=== PATIENT | male | born 1940 | race Caucasian/White ===

== ENCOUNTER 2018-03-19 05:04 | Observation (INO) | payer MEDICARE ==
[2018-03-19 06:24] LABS: Bilirubin Small (Negative); Blood, Urine Moderate (Negative); Clarity CLEAR (Clear); Glucose, Urine (Dipstick) Negative (Negative); Leukocyte Negative (Negative); Nitrite Negative (Negative); Protein, Urine (Dipstick) 30 mg/dL (Neg-Trace); Specific Gravity, Urine 1.019 (1.002-1.036)
[2018-03-19 06:27] LABS: #Lymphocytes 2.2 thou/uL (1.20-3.40); #Neutrophils 15.2 thou/uL (1.40-6.50); %Basophils 0.1 % (0.0-1.0); %Eosinophils 0.2 % (0.0-10.0); %Lymphocytes 11.1 % (21.0-51.0); %Neutrophils 78.6 % (42.0-75.0); Hemoglobin 13.2 g/dL (14.0-18.0); Mean Corpuscular HGB CONC 33.3 g/dL (32.0-36.0); Mean Corpuscular Hemoglobin 31.7 pg (27.0-31.0); Mean Corpuscular Volume 95.2 fl (80.0-94.0); Mean Platelet Volume 8.3 fL (7.4-10.4); Platelet Count 155 thou/uL (130-400); RBC Distribution Width 11.8 % (11.5-14.5); Red Blood Cell (RBC) Count 4.14 mill/uL (4.70-6.10); White Blood Cell (WBC) Count 19.3 thou/uL (4.8-10.8)
[2018-03-19 06:27] LABS: Bacteria/HPF None Seen HPF (None Seen); Hyaline Casts/LPF 0-3 HYALINE CAST LPF (0-3 Hyaline); Squamous Epithelial None Seen HPF (0-3); WBC/HPF 0-3 HPF (0-3)
[2018-03-19 06:28] LABS: #Monocytes 1.9 thou/uL (0.11-0.59)
[2018-03-19 06:45] LABS: ALT (SGPT) 14 U/L (8-55); AST (SGOT) 14 U/L (5-34); Albumin 3.8 g/dL (3.4-4.8); Alkaline Phosphatase 70 U/L (40-150); Anion Gap 12 mmol/L (10-20); BUN (Urea Nitrogen) 14 mg/dL (8.4-25.7); Bilirubin, Total 1.7 mg/dL (0.2-1.2); Calc. Creatinine Clearance 0 mL/min (70-130); Calcium 9.1 mg/dL (7.8-10.44); Carbon Dioxide 25 mmol/L (23-31); Chloride 101 mmol/L (98-107); Estimated GFR-MDRD 89; Globulin 2.9 g/dL (2.4-3.5); Glucose 96 mg/dL (83-110); Lipase 14 U/L (8-78); Potassium 3.5 mmol/L (3.5-5.1); Protein, Total 6.7 g/dL (5.8-8.1); Sodium 134 mmol/L (136-145)
[2018-03-19] MEDS ORDERED: Piperacillin/Tazobactam 3.375 GM VIAL ONE (09:12)
--- NOTE | 2018-03-19 09:47 | CT ---
CT ABDOMEN AND PELVIS WITH ORAL AND IV CONTRAST: Date: 03/19/18 HISTORY: Abdominal pain, right upper quadrant pain, nausea. FINDINGS: There are dependent changes in the lung bases. A 5.0 mm peripheral nodule is seen in the lateral aspe ct of the left lung base. The liver, spleen, pancreas, adrenal glands, and kidneys appear normal. No calcified gallstones are s een. The small bowel loops are not abnormally dilated. There is a small amount of free fluid in the r ight lower quadrant. A 5.0 cm mass with fecal material and a small amount of fluid is seen in the right lower quadrant adj acent to the cecum, indicative of a contained appendiceal perforation. There are vascular calcifications without evidence of aneurysmal dilatation of the abdominal aorta. T here are degenerative changes in the spine. IMPRESSION: 1. Perforated appendicitis with abscess. 2. Evaluation of lung nodule with CT scan of chest is recommended. Discussed over the phone with ER physician. Dr. Marie, at 0810 hours. CODE CR. POS: [facility]
--- NOTE | 2018-03-19 10:22 | HP ---
DATE OF ADMISSION: 03/19/2018 HISTORY OF PRESENT ILLNESS: A 78-year-old man presented to the emergency department with a history of insidious onset periumbilical abdominal pain which started at midnight and now settled in the right lower quadrant where it has persisted. Pain is described as sharp without radiation. Preeti n is associated with some nausea, but no emesis. The patient denies any diarrhea, hematochezia or me matheus. He denies any unexplained weight loss. He reports, however, chronic recurrent mild and vague right lower quadrant abdominal pain over the last 2-3 years. He has been evaluated in the emergency department on multiple occasions for near syncopal episodes of undetermined etiology. Currently, the patient reports his pain at 7/10. He denies any fevers, though he reports some chills. PAST MEDICAL HISTORY: Pertinent for recurrent near syncope of undetermined etiology. Other past med ical history includes benign prostatic hypertrophy. PAST SURGICAL HISTORY: Pertinent for excision of skin cancer in 2007, diagnostic colonoscopy and marjorie gical repair of right forearm injury as a child. SOCIAL HISTORY: The patient is and lives at home with his . 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 He denies any cigarette smoking, ethanol or illicit drug abuse. FAMILY HISTORY: Noncontributory for this patient's age. CURRENT MEDICATION: Flomax 0.4 mg p.o. daily. ALLERGIES: Patient denies any known drug allergies. REVIEW OF SYSTEMS: Ten point review of systems essentially unremarkable except for as stated in past medical history and chief complaint. PHYSICAL EXAMINATION: GENERAL: This reveals 78-year-old normally developed man who is otherwise coherent and interactive a nd appears stated age. The patient is alert and oriented x3 and appears to be in moderate acute dist ress secondary to right lower quadrant abdominal pain. VITAL SIGNS: Today includes blood pressure 118/85, pulse is 68, respiratory rate is 18, and oxygen s aturation is 96% on room air. HEENT: Examination reveals normocephalic and atraumatic. Pupils are equal, round, reactive to light and accommodation. Extraocular muscles are intact bilaterally. He has no sclerae icterus present. Oral mucosa is pink and moist. No lesions are noted. NECK: Supple. No palpable lymphadenopathy or thyromegaly present. HEART: Reveals regular rate and rhythm. No murmurs or gallops auscultated. LUNGS: Clear to auscultation bilaterally. His breathing is regular and unlabored. ABDOMEN: Soft with right lower quadrant tenderness at McBurney's. He has a positive Rovsing sign. Liver and spleen are nonpalpable below costal margin. EXTREMITIES: Reveals 2+ radial and pedal pulses bilaterally. No ankle edema is present. NEUROLOGIC: Examination reveals no focal deficits present. IMAGING DATA: Pertinent radiographic studies include CT scan of the abdomen and pelvis which is pb rkable for 5 cm abscess adjacent to cecum with fecal material. The appendix is likely perforated. LABORATORY DATA: Today includes CBC with 19,300 white blood cells, hemoglobin 13.2, hematocrit is 39 .5, platelet count 155,000. Metabolic profile: Sodium 134, potassium is 3.5, chloride is 101, bicar bonate 25, BUN 14, creatinine 0.84, glucose 96. Total bilirubin 1.7, AST and ALT 14 and 14 respectiv carmen. Serum lipase is normal at 14. IMPRESSION: Acute appendicitis with perforation and contained periappendiceal abscess. PLAN: Laparoscopic appendectomy. Above findings and plan discussed with the patient who indicates u nderstanding of information given. I have answered his questions. The patient has granted consent f or this admission and surgical intervention. The history taken and informed consent was obtained in the presence of the patient's .
[2018-03-19 10:41] LABS: INR-International Normal Ratio 1.3; PTT 38.6 SEC (22.9-36.1); Prothrombin Time 16.9 SEC (12.0-14.7)
[2018-03-19] MEDS ORDERED: Piperacillin/Tazobactam 3.375 GM in Sodium Chloride 0.9% 100 ML IVPB SCH (12:00)
[2018-03-19] MEDS ORDERED: Lidocaine 1% PF 5 ML VIAL ONE (12:26)
[2018-03-19] MEDS ORDERED: Ondansetron HCl/PF 4 MG/2 ML Vial ONE ×2 (12:26→15:36)
[2018-03-19] MEDS ORDERED: ePHEDrine/0.9% NaCl/PF SYRINGE 50 mg/10 ml ONE (12:26)
[2018-03-19] MEDS ORDERED: Succinylcholine Chloride 20 MG/ML 10 ml SYRINGE FS ONE (12:26)
[2018-03-19] MEDS ORDERED: Glycopyrrolate 0.2 MG/ML 5 ML SYRINGE ONE (12:26)
[2018-03-19] MEDS ORDERED: Dexamethasone 20 MG/5 ML VIAL ONE (12:26)
[2018-03-19] MEDS ORDERED: PROPOFOL 200 MG/20 ML VIAL ONE (12:26)
[2018-03-19] MEDS ORDERED: Bupivacaine/Epinephrine 0.25% 30 ML VIAL ONE (14:40)
[2018-03-19] MEDS ORDERED: Fentanyl 250 MCG/5 ML VIAL ONE (14:42)
[2018-03-19] MEDS ORDERED: Midazolam HCl 2 mg/2 ml Vial ONE (14:42)
[2018-03-19] MEDS ORDERED: Iopamidol 370 76% 50 ML VIAL FS ONE (14:59)
[2018-03-19] MEDS ORDERED: ISOVUE-370 76%-LOCM 1 ML ONE (14:59)
[2018-03-19] MEDS ORDERED: HYDROmorphone 2 MG/ML VIAL SLOW IVP PRN (15:41)
[2018-03-19] MEDS ORDERED: Promethazine HCl 25 MG/ML VIAL SLOW IVP PRN (15:41)
[2018-03-19] MEDS ORDERED: Morphine Sulfate 2 MG/ML SYRINGE SLOW IVP PRN (15:41)
--- NOTE | 2018-03-19 16:25 | EKG ---
Test Reason : PREOP Blood Pressure : / mmHG Vent. Rate : 068 BPM Atrial Rate : 068 BPM P-R Int : 154 ms QRS Dur : 100 ms QT Int : 384 ms P-R-T Axes : 073 022 033 degrees QTc Int : 408 ms Normal sinus rhythm Normal ECG Confirmed by ATTILA BUCK ([id number]) on 03/19/2018 4:24:46 PM Referred By: DIONTE Confirmed By:ATTILA BUCK
[2018-03-19] MEDS ORDERED: hydrALAZINE 20 MG/ML VIAL SLOW IVP PRN (16:32)
[2018-03-19] MEDS ORDERED: Dextrose 5% in Water 1,000 ML IV PRN (16:32)
[2018-03-19] MEDS ORDERED: Ondansetron HCl/PF 4 MG/2 ML Vial IVP PRN (16:32)
[2018-03-19] MEDS ORDERED: Promethazine HCl 25 MG/ML VIAL IM PRN (16:32)
[2018-03-19] MEDS ORDERED: Dextrose 50% Abboject 50 ML SYRINGE SLOW IVP PRN (16:32)
[2018-03-19] MEDS ORDERED: Ibuprofen 600 MG TAB PO PRN (16:36)
[2018-03-19] MEDS ORDERED: Morphine 4 MG/ML VIAL SLOW IVP PRN (16:36)
[2018-03-19] MEDS ORDERED: traMADol HCl 50 MG TAB PO PRN ×2 (16:36)
[2018-03-19 18:42] VITALS: BMI 24.4
[2018-03-19] MEDS: Piperacillin/Tazobactam 3.375 GM in Sodium Chloride 0.9% 100 ML IVPB SCH ×2 (19:28→20:29)
[2018-03-19] MEDS: Acetaminophen 500 MG TAB PO SCH (19:29)
[2018-03-19] MEDS: Famotidine 20 MG TAB PO SCH (20:29)
[2018-03-19] MEDS ORDERED: Enoxaparin Sodium 40 MG/0.4 ML SYRINGE SC SCH (21:00)
[2018-03-19] MEDS ORDERED: Famotidine 40 MG/4 ML VIAL SLOW IVP SCH (21:00)
[2018-03-19] MEDS: Lactated Ringer's 1,000 ML IV SCH (21:31)
--- NOTE | 2018-03-19 22:01 | OP ---
DATE OF PROCEDURE: 03/19/2018 PREOPERATIVE DIAGNOSIS: Acute appendicitis. POSTOPERATIVE DIAGNOSIS: Acute appendicitis. PROCEDURE PERFORMED: Laparoscopic appendectomy. SURGEON: Darci Lunsford D.O. ANESTHESIA: General endotracheal. ESTIMATED BLOOD LOSS: 5 mL FLUIDS GIVEN: 650 mL crystalloids. SPONGE AND INSTRUMENT COUNT: Certified as correct x2. COMPLICATIONS: None apparent. INDICATIONS FOR PROCEDURE: This is a 78-year-old man presented with right lower quadrant abdominal p ain. Clinical and radiographic examination was consistent with acute appendicitis with possible perf oration given right lower quadrant fluid collection. FINDINGS: Findings are consistent with appendix in the usual anatomic location modestly inflamed. T here was some seropurulent fluid collection in the pelvis. I did not see any evidence of perforation . DESCRIPTION OF PROCEDURE: Informed consent obtained from the patient who was brought to the operatin g room and placed in supine position. Following general anesthesia, the abdomen was sterilely preppe d and draped in usual fashion. A Knowles catheter was inserted and placed bedside drain. The skin bel ow the umbilicus was then infiltrated with 0.25% Marcaine with epinephrine. A small curvilinear infr aumbilical incision was made using an 11 scalpel. Umbilical stalk was grasped with Susie's and elev ated. Veress needle was inserted through the incision and placed in the peritoneal cavity through wh ich the abdomen was insufflated with 3 liters of CO2 gas. Intraabdominal pressure noted at 1 mmHg. Following abdominal insufflation, Veress needle was removed and a 5-mm trocar was introduced using th e Visiport under laparoscopy. Laparoscopy confirmed proper placement of the port, no injuries to und erlying structures. Additional laparoscopy reveals the right lower quadrant partially encased by ome ntal adhesions. Under direct laparoscopy, a 5-mm suprapubic and a 12-mm left lower quadrant ports we re placed after the overlying skin were infiltrated with 0.25% Marcaine with epinephrine and appropri ate incisions made. The patient was placed in a Trendelenburg position, rotated to his left. I then introduced a Synthesioige grasper through the left lower quadrant port site using this to manipulate the small bowel off of the right lower quadrant, exposing a moderate fluid collection of seropurulent fl uid. This was evacuated with suction. Some of the specimen was passed off to microbiology. At this juncture, I used an Endo [place] forceps to grasp the appendix which was elevated. Fibrotic attachm ents to the right lateral gutter were taken down using a [place] dissector. I then used a [place] dissector to create a rent through the mesoappendix at the base. An Endo MONIKA with a blue load was us ed to divide the appendix at appendicocecal junction. Using a white load of the Endo-MONIKA, the mesoap pendix was divided at the base. The appendix was delivered of the abdominal cavity using an EndoCatc h. Operative site was inspected for good hemostasis. Finding no other pathology. Laparoscopy was t erminated and the fascia of the left lower quadrant ports was closed using 0 Vicryl suture and Endo c losure device under laparoscopy. The abdomen was desufflated. All ports and instruments removed and accounted for. Skin incision was closed using 4-0 Monocryl suture in subcuticular fashion. Dermabo nd was applied over the incision closure. The patient tolerated the operation without any apparent complication and was returned to recovery ro in a satisfactory condition.
[2018-03-20] MEDS: Acetaminophen 500 MG TAB PO SCH ×3 (00:24→12:45)
[2018-03-20] MEDS: Piperacillin/Tazobactam 3.375 GM in Sodium Chloride 0.9% 100 ML IVPB SCH ×2 (02:16→09:33)
[2018-03-20] MEDS: Lactated Ringer's 1,000 ML IV SCH ×2 (02:19→12:46)
[2018-03-20 08:07] VITALS: TEMP 97.6
[2018-03-20] MEDS: Famotidine 20 MG TAB PO SCH (09:33)
[2018-03-20 11:51] VITALS: BP 116/68
--- NOTE | 2018-03-20 13:05 | DIS ---
DATE OF ADMISSION: 03/19/2018 DATE OF DISCHARGE: 03/20/2018 ADMITTING PHYSICIAN: Darci Lunsford D.O. DISCHARGING PHYSICIAN: Darci Lunsford D.O. ADMITTING AND DISCHARGE DIAGNOSIS: Acute appendicitis. OPERATIONS PERFORMED: Laparoscopic appendectomy on 03/19/2018. Please see separate dictation for op erative report. HISTORY AND HOSPITAL COURSE: A 78-year-old man presented with abdominal pain. Clinical and radiogra phic examination was consistent with acute appendicitis. CT scan of the abdomen and pelvis also show ed what was suspected to be a right lower quadrant periappendiceal abscess. Operative findings were consistent with what appeared to be a sterile fluid collection evacuated and sent for microbiology an d was negative for any bacteria. The patient was admitted to a general surgical floor following an u neventful laparoscopic appendectomy. Postop day #1, he is ambulating with minimal difficulty. Pain is adequately controlled on oral analgesics. The patient is tolerating a diet and having normal esteban l and urinary function. He has remained hemodynamically stable and afebrile through this hospitaliza tion. The patient has been discharged home today with the following instructions: 1. He sees me in the Surgery Clinic in 10-14 days. 2. He is advised to ambulate daily to avoid complications of venous thromboembolism. 3. He may shower effective today, but avoid using bathtub or swimming. 4. He is to avoid weightlifting in excess of 20 pounds until he has been released by me. He may res ume all medications as prescribed by his primary care physician. Additionally, he is given a prescription for tramadol 50 mg #20 to be taken 1-2 p.o. q.6 hours p.r.n. pain. He may alternate this with Tylenol 1000 mg p.o. q.6 hours and ibuprofen 600 mg p.o. q.8 hours p.r.n. pain. Instructions were given to the patient in presence of his and his nurse at bedside. Patient ind icates understanding of information given. He has expressed gratitude for the care and nurturing dur ing this hospitalization and surgery.
[2018-03-26 10:23] LABS: Fungus Stain Final report (.)
== END 2018-03-20 13:17 | disposition home or self-care (01) ==
LOC: ERS 05:04 → SDC 11:03 → SURG B 18:09
PROVIDERS: ADMIT Surgery; ATTEND Surgery
PROC: 0DTJ4ZZ Resection of Appendix, Percutaneous Endoscopic Approach (ICD-10-PCS; principal; 2018-03-19)
DX: K35.80 Unspecified acute appendicitis (principal); Z98.890 Other specified postprocedural states
CPT/HCPCS: 44970; 74177; 80053; 83690; 85025; 85610; 85730; 86850; 86900; 86901; 87070; 87075; 87102; 87205; 87206; 88304; 93005; 96365; 96372; 97139; 99285; G0378; 36415; 81003; 81015; 93010; J1100; J1650; J2001; J2250; J2405; J2543; J2704; J3010; J7050

== ENCOUNTER 2019-02-05 07:39 | Outpatient (CLI) | payer MEDICARE ==
--- NOTE | 2019-02-05 09:58 | MRI ---
MRI CERVICAL SPINE: INDICATIONS: Cervical radiculopathy. Neck pain. TECHNIQUE: Multiplanar, multisequential imaging of the cervical spine obtained. FINDINGS: Moderate degenerative changes of the cervical spine noted. Loss of disk space at all levels. Degene rative disk and endplate changes. Hypertrophic spurring from the cervical vertebrae. There is a pos terior listhesis at C4-C5, measuring 3 to 4 mm. At C2-C3, mild posterior disk bulge and spondylosis flatten the thecal sac. There is right foraminal narrowing due to the facet and uncinate hypertrophy. At C3-C4, posterior disk bulge and spondylitic change impinge on and mildly flatten the anterior cord . Left foraminal narrowing secondary to facet and uncinate hypertrophy. At C4-C5, there is posterior listhesis, as stated above. Posterior disk bulge and spondylosis are al so present. These changes impinge on and flatten the cord. Bilateral foraminal encroachment from fa cet and uncinate hypertrophy. At C5-C6, slight posterior listhesis with spondylosis. These changes impinge and mildly flatten the cord. Bilateral foraminal narrowing, more severe on the right, due to hypertrophic change. At C6-C7, disk bulge and spondylosis are present; however, no cord impingement. The foramina appear patent. IMPRESSION: 1. Degenerative disk changes are prominent at C3-C4, C4-C5, and C5-C6. 2. Moderate cervical canal stenosis at these levels with cord impingement at all these levels and fo raminal encroachment at these levels, as described above. POS: [facility]
== END 2019-02-05 07:40 | disposition home or self-care (01) ==
LOC: BICMRI 07:39
PROVIDERS: ATTEND Family Medicine
DX: M50.11 Cervical disc disorder with radiculopathy, high cervical region (principal); M48.02 Spinal stenosis, cervical region
CPT/HCPCS: 72141

== ENCOUNTER 2019-03-19 15:05 | Outpatient (CLI) | payer MEDICARE ==
--- NOTE | 2019-03-19 15:45 | RAD ---
XR Cervical Spine 4 View Min: 03/19/2019 12:00 AM CLINICAL HISTORY: Cervical spinal stenosis with bilateral hand numbness FINDINGS: There is slight anterior translation of C2 on C3 on the neutral projection. There is slight anterior translation of C7 on T1 on the neutral projection. There is advanced disc degenerative disease at C4-5 and C5-6. Moderate disc degenerative disease is s een at C3-4 and C6-7. There is multilevel facet osteoarthrosis. With flexion the anterolisthesis of C2 on C3 is worsened. The anterolisthesis of C7 on T1 is stable. The C2-C3 anterolisthesis is reduced with extension. The C7-T1 anterolisthesis is unchanged with extension. Lung apices are clear. IMPRESSION: Moderate to severe cervical spondylosis with abnormal translational motion is seen at C2-C3. There is mild anterolisthesis of C7 on T1 which is stable on the dynamic lateral projections..
== END 2019-03-19 15:06 | disposition home or self-care (01) ==
LOC: BICRAD 15:05
PROVIDERS: ATTEND Family Medicine
DX: M48.02 Spinal stenosis, cervical region (principal); M47.812 Spondylosis without myelopathy or radiculopathy, cervical region; M43.13 Spondylolisthesis, cervicothoracic region
CPT/HCPCS: 72050

== ENCOUNTER 2019-07-01 11:30 | Inpatient (IN) | payer MEDICARE ==
[2019-07-01 12:04] VITALS: BMI 23.3
--- NOTE | 2019-07-01 12:08 | HP ---
HISTORY OF PRESENT ILLNESS: This is a 79-year-old male, who reports to our office for evaluation of stiffneck and shoulder pain. The patient reports that his primary care done MRI of cervical spine and referred to our office for cervical spinal stenosis. The patient states that with rotation in his neck, he has some pain in his shoulders and arm, left greater than right. The patient states that hand will fall sleep at night while driving, left greater than right, numbness in the thumb and pointer finger. Denies physical therapy injections, pain medications. Denies any imbalance or clumsiness in his hands. REVIEW OF SYSTEMS: A 10-point review os systems has been completed and is negative other than stated in the above HPI. PAST MEDICAL HISTORY: Shingles, urinary frequency, enlarged prostate, syncope, and glaucoma. PAST SURGICAL HISTORY: Skin cancer removal in 2007, appendectomy in 2018. FAMILY HISTORY: Father is . in [place] War [place]. Mother at 97, diagnosed with hypertension. SOCIAL HISTORY: The patient is a nonsmoker. Denies alcohol or drug use. 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 MEDICATIONS: The patient denies medications. ALLERGIES: NO KNOWN DRUG ALLERGIES. PHYSICAL EXAMINATION: CONSTITUTIONAL: The patient is alert and oriented x3. Appears nontoxic. RESPIRATIONS: Normal work of breathing on room air. NECK: Soft, supple. No masses are noted. Range of motion intact, nonpainful. NEUROLOGIC: Awake, alert, and oriented x3. Memory, attention, and fund of knowledge are normal. Cranial nerves grossly intact. Upper extremities, 5/5 strength in deltoids, biceps, triceps, wrist extension, finger extension, finger intrinsics. Sensation equal bilaterally. Reflexes are symmetric. Spurling's negative. Positive Tinel's bilateral median nerve. IMAGING DATA: Severe stenosis, C3 through C6. ASSESSMENT AND PLAN: Dr. Lima has offered surgery and offered anterior cervical discectomy and fusion C3 through C6. The patient states he understands the risks and is willing to proceed with surgery. Job ID: [id number]
[2019-07-03] MEDS ORDERED: ceFAZolin Sodium (SDC) 2 GM/100 ML BAG ONE (08:07)
[2019-07-03] MEDS ORDERED: Sodium Chloride 0.9% 20 ML ONE (10:24)
[2019-07-03] MEDS ORDERED: Midazolam HCl 2 mg/2 ml Vial ONE (10:34)
[2019-07-03] MEDS ORDERED: Fentanyl 100 MCG/2 ML VIAL ONE ×2 (10:56→15:01)
[2019-07-03] MEDS ORDERED: Ondansetron PF 4 MG/2 ML Vial IVP PRN (11:23)
[2019-07-03] MEDS ORDERED: traMADol HCl 50 MG TAB PO PRN ×2 (11:23)
[2019-07-03] MEDS ORDERED: Acetaminophen 650 MG Suppository PR PRN (11:23)
[2019-07-03] MEDS ORDERED: diphenhydrAMINE 50 MG/ML VIAL IVP PRN (11:23)
[2019-07-03] MEDS ORDERED: Cyclobenzaprine 10 MG TAB PO PRN (11:23)
[2019-07-03] MEDS ORDERED: Promethazine 25 MG TAB PO PRN (11:23)
[2019-07-03] MEDS ORDERED: Morphine 2 MG/ML SYRINGE SLOW IVP PRN (11:23)
[2019-07-03] MEDS ORDERED: tiZANidine HCl 4 MG TAB PO PRN (11:23)
[2019-07-03] MEDS ORDERED: Promethazine HCl 25 MG/ML VIAL IM PRN (11:23)
[2019-07-03] MEDS ORDERED: diphenhydrAMINE 25 MG CAP PO PRN (11:23)
[2019-07-03] MEDS ORDERED: Bisacodyl 10 MG SUPP PR PRN (11:23)
[2019-07-03] MEDS ORDERED: Acetaminophen 325 MG TAB PO PRN (11:23)
[2019-07-03] MEDS ORDERED: Mag-Al 1200 mg/1200 mg/30 ML UDCUP PO PRN (11:23)
[2019-07-03] MEDS ORDERED: Promethazine HCl 12.5 MG SUPP PR PRN (11:23)
[2019-07-03] MEDS ORDERED: Milk Of Magnesia 30 ML UDCUP PO PRN (11:23)
[2019-07-03] MEDS ORDERED: Acetaminophen/Codeine 30-300mg Tablet PO PRN ×2 (11:23)
[2019-07-03] MEDS ORDERED: Phenylephrine HCL 10 MG/ML VIAL ONE (14:27)
[2019-07-03] MEDS ORDERED: Ondansetron HCl/PF 4 MG/2 ML Vial IVP PRN (16:01)
[2019-07-03] MEDS ORDERED: Promethazine HCl 25 MG/ML VIAL IM/IV PRN (16:01)
[2019-07-03] MEDS ORDERED: Non-Formulary Medication 1 EACH PO PRN (16:01)
[2019-07-03] MEDS ORDERED: Calcium Chloride 1 GM/10 ML Abboject SYRINGE ONE (16:37)
[2019-07-03] MEDS ORDERED: EPINEPHrine 1 MG/ML AMP ONE (17:00)
[2019-07-03] MEDS ORDERED: ePHEDrine/0.9% NaCl/PF SYRINGE 50 mg/10 ml ONE (17:01)
[2019-07-03] MEDS: CEFAZOLIN 2 GM, Admixture Fee 1 EACH in Sodium Chloride 0.9% 100 ML IVPB SCH (18:21)
[2019-07-03] MEDS: Sodium Chloride 0.9% 1,000 ML IV SCH (18:41)
--- NOTE | 2019-07-03 21:54 | OP ---
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 PREOPERATIVE INDICATION: Prevent neurological deterioration. 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 PROCEDURES PERFORMED: Anterior cervical diskectomy, intervertebral arthrodesis, placement of intervertebral biomechanical device, C3-C4, C4-C5, and C5-C6. Local morselized autograft, morselized allograft, and operating microscope. PREOPERATIVE MEDICATION: Ancef 2 g IV. DRAIN NUMBER: Zero. DRAIN TYPE: None. DESCRIPTION OF PROCEDURE: The patient was brought to the operating room. General endotracheal anesthesia was induced. The patient was carefully positioned on the operating table in supine fashion with his head supported by a gel-filled doughnut shaped headrest. A lateral fluoro radiograph was used to plan our incision. The right side of the neck was sterilely prepped and draped. We opened our incision with a 10 blade knife and controlled bleeding with bipolar cautery. We dissected sharply to the platysma and cut this muscle in line with our incision. We continued our dissection medial to the sternocleidomastoid and lateral to the trachea and esophagus. We arrived to the prevertebral space. We placed a marker in the spine, took a lateral fluoro radiograph to confirm the levels upon which we were operating. We then elevated the longus colli muscles off the anterior surface of C3, C4, C5, and C6. We placed self-retaining retractors beneath these muscles. Distraction pins were placed at C3 and C5 and we distracted across the two intervening interspaces. The interspaces were incised with a 15 blade knife, and we removed disk contents using curettes and rongeurs. The operative microscope was brought into the field. Under microscopic magnification and using microsurgical techniques, we removed the remainder of the intervertebral disk. We accessed the ventral epidural space with a micro curette. We removed the large posterior osteophytes and the posterior longitudinal ligament across the entire interspace at C3-C4 and C4-C5 from one neural foramen all the way to the other. With our decompression secured, we turned our attention to arthrodesis. Curettes were used to prepare the endplates. We measured the height of the interspaces with a bone rasp to 6 mm at C3-C4 and 5 mm at C4-C5. Osteophytes were removed during our decompression, were cleaned of soft tissue attachments, morcellized, and then added to demineralized bone matrix as our fusion substrate. The appropriately-sized PEEK intervertebral grafts were brought into the field. These were loaded with demineralized bone matrix and morselized autograft and advanced into their respective interspaces under radiographic guidance to the appropriate depth. We then removed our distraction pin from C3 through C6 and a lateral retractor as well to the C5-C6 interspace. We distracted across the interspace with our [place] distractors, and we incised it with a 15 blade knife. We removed disk contents using curettes and rongeurs. We removed all of the posterior osteophytes and posterior longitudinal ligament as we had at the other two interspaces. We decompressed the dura from one neural foramen all the way to the other. We prepared the endplates for grafting and measured the height of this interspace to 6 mm. A 6 mm PEEK intervertebral graft was loaded with demineralized bone matrix and morselized autograft and advanced into the interspace under radiographic guidance to the appropriate depth. We removed our distraction pins and took the operative microscope out of the field. A 48 mm anterior cervical plate was brought into the field. We drilled corporate pilot holes through the plate into the vertebral bodies at C3, C4, C5, C6. We affixed the plate using 14 mm screws. Fixed angle screws were used at C6 and variable angle screws at C3, C4, and C5. We engaged the locking mechanism over each of the 8 screws. AP and lateral fluoro radiographs confirmed adequate position of our instrumentation. We irrigated copiously with bacitracin irrigation. Hemostasis was excellent. We closed the wound in anatomical layers and we applied a sterile dressing. This was a clean case, no contamination. Job ID: [id number]
[2019-07-04] MEDS: CEFAZOLIN 2 GM, Admixture Fee 1 EACH in Sodium Chloride 0.9% 100 ML IVPB SCH (00:06)
[2019-07-04] MEDS: Sodium Chloride 0.9% 1,000 ML IV SCH ×2 (00:10→15:24)
[2019-07-04] MEDS: Tamsulosin HCl 0.4 MG CAP PO SCH (05:53)
[2019-07-04] MEDS ORDERED: CEFAZOLIN 2 GM, Admixture Fee 1 EACH in Sodium Chloride 0.9% 100 ML IVPB SCH ×2 (08:00→09:45)
[2019-07-04] MEDS ORDERED: Dexamethasone 10 MG/ML VIAL SLOW IVP SCH (08:15)
--- NOTE | 2019-07-04 09:49 | PRG ---
DATE OF SERVICE: 07/04/2019 The patient is a 79-year-old male, postoperative day #1 three-level ACDF. Following the surgery, he was transitioned to the Med/Surg floor, where his pain has been well controlled with p.o. medications, he is having some difficulty this morning with dysphagia. He has also developed some urinary retention overnight and required I and O cath x1. We considered treating with p.o. Flomax as well. The patient reports he has had significant episodes of hypotension and syncope in the past with this medication. On exam this morning, the patient is awake and alert, in no acute distress. He has free active range of motion of all extremities. No focal motor weakness. Incision is soft, dry, and intact. We will continue to monitor the patient's urinary retention closely. The patient reports he does feel like he is urinating more easily at this time. We will continue p.r.n. straight cath again if bladder scan is greater than 350. As for dysphagia, we will treat with 10 mg of IV Decadron now. We will continue to mobilize and advance the patient's diet and I anticipate home in 1 to 2 days. Job ID: [id number]
[2019-07-04] MEDS ORDERED: Sodium Chloride 0.65% Nasal 44 ML BOT EA NARE PRN (14:48)
[2019-07-05] MEDS: Sodium Chloride 0.9% 1,000 ML IV SCH ×2 (04:29→18:16)
[2019-07-05] MEDS: Tamsulosin HCl 0.4 MG CAP PO SCH (05:00)
--- NOTE | 2019-07-05 09:26 | PRG ---
DATE OF SERVICE: 07/05/2019 SUBJECTIVE: The patient is postoperative day #2, status post three-level ACDF. His urinary retention has significantly improved. He continues to have significant dysphagia and has been unable to tolerate any p.o. fluids or food during this admission course. He reports slight decrease in his symptoms with Decadron treatment yesterday. OBJECTIVE: On exam this morning, the patient is awake, alert, in no acute distress. He has free active range of motion of all extremities. No focal motor weakness. Incision is soft, dry, and intact. He is not having any respiratory difficulties. PLAN: We will plan to continue his IV steroids and I have started Decadron 4 mg IV q.6h. I have also added a famotidine 20 mg IV b.i.d. I anticipate that this will improve with time. But until he is able to take p.o., we will continue to watch him for additional night. Continue work with Physical Therapy and mobilize appropriately. Job ID: [id number] [facility]
[2019-07-05] MEDS: Dexamethasone 4 mg/ml Vial SLOW IVP SCH ×3 (10:17→20:55)
[2019-07-05] MEDS: Famotidine/PF 20 mg/2ml Vial SLOW IVP SCH ×2 (10:23→20:55)
[2019-07-05] MEDS: cefTRIAXone\\ROCEPHIN 1 GM in Sodium Chloride 0.9% 100 ML IVPB SCH (14:29)
--- NOTE | 2019-07-05 14:30 | HP ---
TIME: 12 noon. HISTORY OF PRESENT ILLNESS: This is a 79-year-old male, who is postop day #2, status post cervical diskectomy. The procedure went well. I was consulted this morning for dysphagia. The patient has had difficulty swallowing liquids and solids. Complains of pain. The patient was started on steroids to decrease swelling, however, the patient has not improved. PAST MEDICAL HISTORY: Shingles, BPH, and glaucoma. PAST SURGICAL HISTORY: Include skin cancer, colonoscopy, and appendectomy. FAMILY HISTORY: Mother with hypertension, at 97. Father in [place] War II. He does have 1 son, who is blind, whom he cares for. Maternal uncle has throat cancer. The patient is from [place], moved to the [place] the age of 13. SOCIAL HISTORY: He is a nonsmoker, nondrinker. 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 He is . He has 2 sons, one teaches at [employer]. ALLERGIES: NONE. MEDICATIONS: None. REVIEW OF SYSTEMS: As above. PHYSICAL EXAMINATION: VITAL SIGNS: Temperature 97.6, pulse 65, respirations 18, pulse ox 94%, and blood pressure 126/72. GENERAL: No acute distress. HEENT: The right posterior pharyngeal wall with a 1.5-cm cyst/abscess. No other pathology noted. No evidence of thrush. Airway seems to be patent. HEART: Regular rate and rhythm. LUNGS: Clear. ABDOMEN: Soft. EXTREMITIES AND NEURO: Normal. LABORATORY DATA: None. ASSESSMENT: 1. Posterior pharyngeal cyst/abscess, may or may not be responsible for his dysphagia. 2. Postop day #2, status post cervical diskectomy. PLAN: 1. Consult ENT. 2. IV Rocephin started. 3. I attempted to incise with a waiting Q-tip that was unsuccessful. The patient tolerated the procedure well. There were no complications. ENT notified and we will await their evaluation. Job ID: [id number]
[2019-07-06] MEDS: Dexamethasone 4 mg/ml Vial SLOW IVP SCH ×2 (03:33→08:32)
[2019-07-06] MEDS: Sodium Chloride 0.9% 1,000 ML IV SCH (05:22)
[2019-07-06] MEDS: Tamsulosin HCl 0.4 MG CAP PO SCH ×2 (05:22→05:24)
--- NOTE | 2019-07-06 07:18 | PRG ---
DATE OF SERVICE: 07/06/2019 I saw Mr. Iraheta in his hospital room this morning. He was evaluated by Otolaryngology yesterday on the cystic lesion and lanced it. He feels that this helped a bit, but he has not attempted swallowing yet this morning. Mr. Iraheta tells me his neurological symptoms are much improved. His finger clumsiness and hand numbness, and even his back pain has improved since his ACDF. He is concerned about his poor calorie intake from his inability to swallow effectively. Mr. Iraheta has voiced as I remember from before surgery. He can make a high pitch open "E" sound relatively easily. His tongue is moving normally. Incision is soft and well approximated. There is no obvious mass effect at the surgical site. Neurological examination is improved. I suspect Mr. Iraheta has dysphagia from upper cervical spine dissection, stretching, and some swelling. I expect the steroids to help overtime. We counseled him on sitting straight up to eat, tuck his chin when swallowing, and if he make progress in getting calories and he can be discharged once he is taking p.o. If this lasts more than a few more days, then a temporary feeding tube might need to be placed that I think that is a remote possibility. Job ID: [id number]
[2019-07-06] MEDS: Famotidine/PF 20 mg/2ml Vial SLOW IVP SCH (08:29)
--- NOTE | 2019-07-06 11:53 | PRG ---
DATE OF SERVICE: 07/06/2019 SUBJECTIVE: The patient is feeling much better this morning. He ate a good breakfast. He states his throat swelling has gone down dramatically and is feeling much better. Dr. López did yana a posterior pharyngeal cyst. OBJECTIVE: VITAL SIGNS: Temperature 98.0, pulse 85, respirations 18, pulse ox 93%, and blood pressure 147/52. HEENT: No recurrence of the abscess on the throat in the process of healing. HEART: Regular rate and rhythm. LUNGS: Clear. ABDOMEN: Soft. LABORATORY DATA: None. ASSESSMENT: 1. Post-pharyngeal tonsillar cyst, status post I and D yesterday. 2. Postoperative day #3, status post cervical diskectomy. PLAN: 1. Advance diet. 2. Probably, we would discharge with cefdinir 300 b.i.d. for 10 days. The patient most likely will go home soon. Job ID: [id number]
[2019-07-06] MEDS: cefTRIAXone\\ROCEPHIN 1 GM in Sodium Chloride 0.9% 100 ML IVPB SCH (13:30)
--- NOTE | 2019-07-06 14:23 | PRG ---
DATE OF SERVICE: SUBJECTIVE: Mr. Iraheta is an inpatient postop cervical fusion, but was seen by Dr. López on July 05, for development of a tonsillar cyst that then had to drain. The patient overall states that he is doing well. He is eating and drinking now, which he had not been able to do previously. He denies any real throat pain or difficulty swallowing at this point, and again, overall says he is improving from yesterday. OBJECTIVE: The patient is well developed, well nourished. He is in no acute distress. Upon walking in the room, he was sitting comfortably in a chair. He was eating some pudding and drinking some water. He was swallowing without any visual difficulty. Examination of the right tonsil showed still some slight swelling in that right tonsil, but healing from the I and D that was performed and only some mild bruising looked to be present. No active bleeding and no drainage. His nasopharyngeal region was sprayed with a combination spray for both decongestion and anesthesia, so that a flexible scope could be used to check on a cord movement and a posterior pharyngeal swelling. The scope was inserted through the left nostril and advanced through the nasopharyngeal passage down into the pharynx region. Both vocal cords were present and able to be visualized, both moved with both phonation and inspiration. There was some posterior pharyngeal swelling; however, it did not interfere with swallowing or speaking. ASSESSMENT: 1. Postoperative for cervical fusion. 2. Incision and drainage of tonsillar cyst. PLAN: Okay to discharge per ENT for tonsillar cyst; however, needs to be seen in our office upon discharge with Dr. López as at his earliest convenience. Job ID: [id number]
[2019-07-06 15:13] VITALS: BP 114/63; TEMP 97.7
== END 2019-07-06 18:22 | disposition home or self-care (01) | DRG 472 ==
LOC: SURG A 07-03 07:50 → SURG B 07-03 17:08
PROVIDERS: ADMIT Neurological Surgery; ATTEND Neurological Surgery
PROC: 0RG20A0 Fusion of 2 or more Cervical Vertebral Joints with Interbody Fusion Device, Anterior Approach, Anterior Column, Open Approach (ICD-10-PCS; principal; 2019-07-03)
PROC: 0RT30ZZ Resection of Cervical Vertebral Disc, Open Approach (ICD-10-PCS; 2019-07-03)
PROC: 0C9PXZZ Drainage of Tonsils, External Approach (ICD-10-PCS; 2019-07-06)
DX: M48.02 Spinal stenosis, cervical region (principal); M47.12 Other spondylosis with myelopathy, cervical region; G95.29 Other cord compression; J35.8 Other chronic diseases of tonsils and adenoids; I95.9 Hypotension, unspecified; R13.10 Dysphagia, unspecified; N40.1 Benign prostatic hyperplasia with lower urinary tract symptoms; R33.9 Retention of urine, unspecified; Z90.49 Acquired absence of other specified parts of digestive tract; Z85.828 Personal history of other malignant neoplasm of skin; Z98.42 Cataract extraction status, left eye
CPT/HCPCS: 76000; 85027; 85610; 85730; 93005; 93010; C1713; C1776; J0131; J0171; J0690; J0696; J1100; J2250; J2370; J3010; J3490; S0028

== ENCOUNTER 2019-07-01 11:38 | Outpatient (CLI) | payer MEDICARE ==
[2019-07-01 12:40] LABS: Hemoglobin 13.3 g/dL (14.0-18.0); Mean Corpuscular HGB CONC 32.8 g/dL (32.0-36.0); Mean Corpuscular Hemoglobin 31.3 pg (27.0-31.0); Mean Corpuscular Volume 95.2 fL (78.0-98.0); Mean Platelet Volume 7.5 fL (7.4-10.4); Platelet Count 174 thou/uL (130-400); Red Blood Cell (RBC) Count 4.27 mill/uL (4.70-6.10); White Blood Cell (WBC) Count 7.5 thou/uL (4.8-10.8)
[2019-07-01 12:45] LABS: INR-International Normal Ratio 1.1
[2019-07-01 12:46] LABS: PTT 35.1 SEC (22.9-36.1)
--- NOTE | 2019-07-01 15:31 | EKG ---
Test Reason : Blood Pressure : / mmHG Vent. Rate : 049 BPM Atrial Rate : 049 BPM P-R Int : 148 ms QRS Dur : 104 ms QT Int : 412 ms P-R-T Axes : 070 018 028 degrees QTc Int : 372 ms Marked sinus bradycardia Abnormal ECG When compared with ECG of 19-MAR-2018 15:05, No significant change was found Confirmed by DR. Geovanni NICHOLAS MD ([id number]) on 07/01/2019 3:30:37 PM Referred By: SAMIRA Confirmed By:DR. Geovanni NICHOLAS MD
--- NOTE | 2019-07-05 11:22 | PRG ---
DATE OF SERVICE: 07/05/2019 SUBJECTIVE: Mr. Iraheta is doing quite well overall. He reports many of his neurologic symptoms have improved. His pain is well controlled. He has significant dysphagia which has improved subjectively, but still will allow him to tolerate p.o., even with his collar off. We have increased the Decadron to 4 q.6 IV today and hopefully this will ultimately alleviate the symptoms. Discussed at length with the patient and his . Job ID: [id number]
== END 2019-07-01 11:39 | disposition home or self-care (01) ==
LOC: LABBT 11:38
PROVIDERS: ATTEND Neurological Surgery
DX: Z01.818 Encounter for other preprocedural examination (principal); M47.12 Other spondylosis with myelopathy, cervical region
CPT/HCPCS: 85027; 85610; 85730; 93005; 93010

== ENCOUNTER 2019-08-27 15:13 | Outpatient (CLI) | payer MEDICARE ==
--- NOTE | 2019-08-27 15:31 | RAD ---
EXAM: XR Cerv Sp Ap Lat STANDARD PROVIDED CLINICAL HISTORY: Cervical spine stenosis. Bilateral hand numbness. History of prior surgery COMPARISON: 03/19/2019. FINDINGS: There has been interval postsurgical changes related to anterior cervical fusion of the C3-C6 levels with anterior plate and screws transfixing these levels. Intradiscal prostheses are seen at these levels. No hardware complication is seen. Again noted is narrowing of the intervertebral disc space at the C6-7 level with stable slight sonia listhesis of C7 on T1 measuring 3 mm. There is also stable trace anterolisthesis of C2 on C3. Facet degenerative changes are seen at multiple levels. Prevertebral soft tissues are within normal limits. IMPRESSION: 1. Interval postsurgical changes related to anterior cervical fusion of C3-C6 levels. 2. Stable trace anterolisthesis of C2 on C3 and stable slight anterolisthesis of C7 on T1. 3. Degenerative changes within the cervical spine.
== END 2019-08-27 15:14 | disposition home or self-care (01) ==
LOC: TBSIIMAG 15:13
PROVIDERS: ATTEND Neurological Surgery
DX: M48.02 Spinal stenosis, cervical region (principal); M47.812 Spondylosis without myelopathy or radiculopathy, cervical region; M43.13 Spondylolisthesis, cervicothoracic region; Z98.1 Arthrodesis status
CPT/HCPCS: 72040

== ENCOUNTER 2020-08-08 13:03 | Outpatient (CLI) | payer MEDICARE ==
--- NOTE | 2020-08-09 10:28 | RAD ---
MODIFIED BARIUM SWALLOW IN PRESENCE OF SPEECH PATHOLOGY: HISTORY: Dysphagia following cerebrovascular disease. Dysphagia unspecified. EXPOSURE: 18 seconds. 0.54 uGy*^m2. FINDINGS: In the presence of speech pathologist, the patient was administered puree, thin liquid, mechanical so ft and regular texture consistencies. Patient was also administered standard barium tablet. No evidence of penetration or aspiration. Mild mass effect upon the posterior esophagus at the C5 level. IMPRESSION: Refer to speech pathologist report for feeding recommendation. . Transcribed Date/Time: 08/09/2020 10:57 AM
== END 2020-08-08 13:04 | disposition home or self-care (01) ==
PROVIDERS: ATTEND Student in an Organized Health Care Education/Training Program
DX: I69.891 Dysphagia following other cerebrovascular disease (principal); M40.209 Unspecified kyphosis, site unspecified; K21.9 Gastro-esophageal reflux disease without esophagitis
CPT/HCPCS: 74230

== ENCOUNTER 2020-09-10 08:37 | Inpatient (IN) | payer MEDICARE, OTHER ==
[2020-09-10 09:36] LABS: #Basophils 0.1 thou/uL (0.0-0.2); #Lymphocytes 3.5 thou/uL (1.20-3.40); #Monocytes 0.6 thou/uL (0.11-0.59); #Neutrophils 7.3 thou/uL (1.40-6.50); %Basophils 0.9 % (0.0-1.0); %Eosinophils 0.4 % (0.0-10.0); %Lymphocytes 30.4 % (21.0-51.0); %Monocytes 4.9 % (0.0-10.0); %Neutrophils 63.5 % (42.0-75.0); Hemoglobin 9.9 g/dL (14.0-18.0); Mean Corpuscular HGB CONC 32.2 g/dL (32.0-36.0); Mean Corpuscular Hemoglobin 32.1 pg (27.0-31.0); Mean Corpuscular Volume 99.6 fL (78.0-98.0); Mean Platelet Volume 8.4 fL (7.4-10.4); Platelet Count 175 thou/uL (130-400); Red Blood Cell (RBC) Count 3.08 mill/uL (4.70-6.10); White Blood Cell (WBC) Count 11.5 thou/uL (4.8-10.8)
[2020-09-10 09:39] LABS: ALT (SGPT) 11 U/L (8-55); AST (SGOT) 14 U/L (5-34); Albumin 3.2 g/dL (3.4-4.8); Alkaline Phosphatase 47 U/L (40-110); Anion Gap 10 mmol/L (10-20); BUN (Urea Nitrogen) 53 mg/dL (8.4-25.7); Bilirubin, Total 0.7 mg/dL (0.2-1.2); Calc. Creatinine Clearance 0 mL/min (70-130); Calcium 8.1 mg/dL (7.8-10.44); Carbon Dioxide 26 mmol/L (23-31); Chloride 107 mmol/L (98-107); Estimated GFR-MDRD Greater than 90; Globulin 2.1 g/dL (2.4-3.5); Glucose 116 mg/dL (83-110); Potassium 4.4 mmol/L (3.5-5.1); Protein, Total 5.3 g/dL (5.8-8.1); Sodium 139 mmol/L (136-145)
--- NOTE | 2020-09-10 10:20 | RAD ---
PORTABLE CHEST: INDICATION: Weakness. Dizziness. COMPARISON: 02/01/2015 film. FINDINGS: The lungs are clear. Vascular markings are normal. Heart and mediastinum unremarkable. IMPRESSION: No acute abnormality. POS: AGW
[2020-09-10 11:50] LABS: INR-International Normal Ratio 1.2; PTT 33.2 sec (22.9-36.1); Prothrombin Time 15.4 sec (12.0-14.7)
[2020-09-10 11:53] LABS: Iron 132 ug/dL (65-175); Iron Binding Capacity, Total 198 mcg/dL (261-462)
[2020-09-10 11:54] LABS: #Basophils 0.1 thou/uL (0.0-0.2); #Lymphocytes 1.6 thou/uL (1.20-3.40); #Monocytes 0.3 thou/uL (0.11-0.59); %Basophils 0.6 % (0.0-1.0); %Eosinophils 0.2 % (0.0-10.0); %Lymphocytes 16.1 % (21.0-51.0); %Monocytes 3.1 % (0.0-10.0); %Neutrophils 80.1 % (42.0-75.0); Hemoglobin 8.4 g/dL (14.0-18.0); Mean Corpuscular HGB CONC 32.3 g/dL (32.0-36.0); Mean Corpuscular Hemoglobin 31.9 pg (27.0-31.0); Mean Corpuscular Volume 98.9 fL (78.0-98.0); Mean Platelet Volume 8.2 fL (7.4-10.4); Platelet Count 140 thou/uL (130-400); Red Blood Cell (RBC) Count 2.62 mill/uL (4.70-6.10)
[2020-09-10 13:38] LABS: Troponin I 0.013 ng/mL (< 0.028)
--- NOTE | 2020-09-10 14:35 | PDOC.HHP ---
Hospitalist HPI - History of Present Illness Presyncope History of Present Illness: Mr. Rutherford is a 80-year-old male with a past medical history of BPH, glaucoma, prior syncopal episodes who presents to the ED for weakness and dizziness. Patient reports that yesterday at 8 AM he underwent an esophageal dilation procedure in Dr. Mccray's office. Patient reports that that afternoon around 3 PM following the procedure he began to feel extremely lightheaded, dizzy, and lost his vision for a few seconds. Patient says he checked his blood pressure and it was very low, and this morning decided to report to the emergency room. Patient did contact Dr. Mccray yesterday who questioned if reaction might of been secondary to anesthesia. Patient denies any bloody bowel movements, dark or tarry stools. Denies hematochezia or coffee-ground emesis denies chest pain, shortness of breath, palpitations. Patient does report that he has a history of low blood pressure and prior syncopal events that are remote and in the past he has seen Dr. Castillo for a work-up of the syncopal episodes. In emergency room initial vital signs 65/45, 82, 18, 98.7, 99% on room air. Hg 9.9. Troponin <0.01, WBC 11.5. BUN/Cr 53/0.79. While patient was in the emergency room patient had 2 syncopal events both times when he went to the bathroom. Patient recovered quickly from these events and after receiving 3 L of fluid is normotensive. Hospitalist ROS - Review of Systems Constitutional: reports: weakness. denies: fever, chills, sweats, malaise, other Eyes: reports: vision change. denies: pain, conjunctivae inflammation, eyelid inflammation, redness, other ENT: denies: ear pain, ear discharge, nose pain, nose discharge, nose congestion, mouth pain, mouth swelling, throat pain, throat swelling, other Respiratory: denies: cough, dry, shortness of breath, hemoptysis, SOB with excertion, pleuritic pain, sputum, wheezing, other Cardiovascular: reports: light headedness. denies: chest pain, palpitations, orthopnea, paroxysmal noc. dyspnea, edema, other Gastrointestinal: denies: nausea, vomiting, abdominal pain, diarrhea, constipation, melena, hematochezia, other Genitourinary: denies: dysuria, frequency, incontinence, hematuria, retention, other Skin: denies: rash, lesions, tyree, bruising, other Neurological: denies: weakness, numbness, incoordination, change in speech, confusion, seizures, other - Medication Medications: Home medications include Nasal spray Patient follows with Dr. Rosas his PCP. He reports he has not been or is supposed to be on any other prescribed medications. No known allergies Hospitalist History - Past Medical History Other Medical History: Medical history includes Glaucoma Arthritis BPH Syncopal episodes - Past Surgical History Other Surgical History: Past surgical history includes appendectomy Cervical discectomy - Family History Other Family History: Patient's mother lived to . Patient's father at [facility]. Denies family history of cancer, diabetes, cardiac disease. - Social History Smoking Status: Never smoker Alcohol: reports: None Drugs: reports: none Living Situation: With Family Activity level: independent ambulation - Exam General Appearance: NAD, awake alert Eye: PERRL, anicteric sclera ENT: normocephalic atraumatic, no oropharyngeal lesions, moist mucosa Neck: supple, symmetric, no JVD, no thyromegaly, no lymphadenopathy, no carotid bruit Heart: RRR, no murmur, no gallops, no rubs, normal peripheral pulses Respiratory: CTAB, no wheezes, no rales, no ronchi, normal chest expansion, no tachypnea, normal percussion Gastrointestinal: soft, non-tender, non-distended, normal bowel sounds, no palpable masses, no hepatomegaly, no splenomegaly, no bruit Extremities: no cyanosis, no clubbing, no edema Skin: normal turgor, no lesions, no rashes Neurological: cranial nerve grossly intact, normal sensation to touch, no weakness, no focal deficits, no new deficit Musculoskeletal: normal tone, normal strength, no muscle wasting Psychiatric: normal affect, normal behavior, A&O x 3 Hospitalist Results - Labs Result Diagrams: 09/10/20 15:17 09/10/20 08:45 Lab results: WBC 10.0 thou/uL (4.8-10.8) 09/10/20 11:46 Hgb 8.4 g/dL (14.0-18.0) L 09/10/20 11:46 Hct 25.9 % (42.0-52.0) L 09/10/20 11:46 MCV 98.9 fL (78.0-98.0) H 09/10/20 11:46 Plt Count 140 thou/uL (130-400) 09/10/20 11:46 Neutrophils % 80.1 % (42.0-75.0) H 09/10/20 11:46 Sodium 139 mmol/L (136-145) 09/10/20 08:45 Potassium 4.4 mmol/L (3.5-5.1) 09/10/20 08:45 Chloride 107 mmol/L (98-107) 09/10/20 08:45 Carbon Dioxide 26 mmol/L (23-31) 09/10/20 08:45 BUN 53 mg/dL (8.4-25.7) H 09/10/20 08:45 Creatinine 0.79 mg/dL (0.7-1.3) 09/10/20 08:45 Glucose 116 mg/dL (83-110) H 09/10/20 08:45 Lactic Acid 1.9 mmol/L (0.5-2.2) 09/10/20 09:13 Calcium 8.1 mg/dL (7.8-10.44) 09/10/20 08:45 Total Bilirubin 0.7 mg/dL (0.2-1.2) 09/10/20 08:45 AST 14 U/L (5-34) 09/10/20 08:45 ALT 11 U/L (8-55) 09/10/20 08:45 Alkaline Phosphatase 47 U/L (40-110) 09/10/20 08:45 Troponin I 0.013 ng/mL (< 0.028) 09/10/20 12:53 Serum Total Protein 5.3 g/dL (5.8-8.1) L 09/10/20 08:45 Albumin 3.2 g/dL (3.4-4.8) L 09/10/20 08:45 Hospitalist H&P A/P - Plan Plan: Syncope 80-year-old male with virtually no past medical history other than prior syncopal episodes with hypotension and syncope after esophageal dilation procedure done yesterday by Dr. Mccray. Patient reports that he has had prior syncopal episodes years ago, that were worked up by Dr. Castillo. At that time Dr. Castillo did mention potentially placing a loop recorder to record patient syncopal episodes. Currently patient denies any palpitations. EKG normal sinus rhythm with no ischemic changes. Initial troponin 0 0.01. No electrolyte abnormalities. Neuro exam within normal limits. Patient did have a drop of his H&H from 13.3-9.9, and then 8.4 after 3 L of normal saline. Patient has no blood in his stools, fecal occult blood testing negative. Plan Telemetry monitoring Monitor electrolytes, magnesium, calcium Trend H&H -Orthostatic vital signs Consider inpatient versus outpatient cardiology consult for loop recorder Hypotension Patient hypotensive to systolic blood pressure in the 60s on admission. Hypertension associated with dizziness, weakness, tunnel vision. Patient had 2 syncopal episodes both while having a bowel movement. Patient reports prior episodes as above. Patient fluid resuscitated with 3 L of normal saline. H&H downtrending, however fecal occult blood negative. We will continue to monitor patient currently stable with systolic blood pressure in the 120s. Likely vasovagal syncope, question high vagal tone. Plan IV fluids Continue to monitor Treatment as above Anemia Patient's H&H previously 13.3 from 08/2019. H&H on admission 9.9. Repeat H&H after 3 L of fluid 8.4. Patient with 2 episodes of syncope, however denies any blood in his stool, dark or tarry stools, hematochezia, coffee-ground emesis. Fecal occult blood testing was negative. Anemia likely dilutional. Chest x-ray done which showed no signs of gas or esophageal rupture. Low suspicion for bleed. Will check iron levels, Vitamin B12, and folate. Plan Trend H&H Monitor stools for blood Type and cross -Iron levels, B12, folate Maintain 2 large-bore IVs DVT prophylaxis: SCDs Full code Case discussed with attending physician Dr. Alvarado. ADDENDUM: At 1800 paged to patient's room. Patient receiving blood transfusion, although order not placed to transfuse. Order was placed to type and cross blood in case patients hemoglobin continued to decline given his significant hypotension, syncope and recent procedure; however no order to transfuse blood products was placed. Transfusion was stopped once this was identified. RN at bedside to stop transfusion. Apologized to family and patient for event and answered all questions. Patient re-examined: AOx4 in NAD resting comfortably in bed RRR, Lungs CTAB Abdomen soft, non-tender with normo-active bowel sounds Extremities warm with distal pulses intact. Dr. Alvarado in room who also assessed patient and spoke with patient and family.
[2020-09-10 14:57] VITALS: BMI 24.4
[2020-09-10 15:28] LABS: Calcium 7.8 mg/dL (7.8-10.44); Magnesium 1.6 mg/dL (1.6-2.6)
[2020-09-10 16:01] LABS: Hemoglobin 8.9 g/dL (14.0-18.0)
[2020-09-10 16:20] LABS: Troponin I 0.026 ng/mL (< 0.028)
--- NOTE | 2020-09-10 16:31 | RAD ---
KUB: 09/10/2020 COMPARISON: None HISTORY: Syncope FINDINGS: Supine imaging limits assessment for small bowel obstruction and free intraperitoneal air. Significant stool overlies the colon, particularly over the rectum. There is multilevel lower lumbar spine degenerative change. IMPRESSION: KUB as detailed above.
--- NOTE | 2020-09-10 18:40 | PDOC.EVN ---
Event Note - Event Note Event Note: Walked into patients room to evaluate - noticed that blood is being transfused. pt reports feeling lightheaded/dizzy yesterday, again today and he presented to the ER. He is s/p EGD and esophageal dilation yesterday, reports little PO intake since the procedure. He denies any dark stool, GI bleed or abdominal sx such as n/v/sob. Discussed the blood - that I didn't see a reason for it - the levels that we transfuse people (less than 7) and that there was no clear indication. Reviewed risks/benefits of blood to explain the level of his blood count (8.9 at last check). Requested RN enter the room at this time and pause the transfusion. Spent more time talking with the patient about his symptoms. Requested KALYANI Marx in the room who reports it was a type and cross but no intent to transfuse the blood unless the hemoglobin continued to decline. She explained this to the patient. Review of systems: Pt reports he's had numbness in his feet for about a year. He denies any workup for this, and reports he has mentioned this to his PCP. Pt is not on medications at home and reports low blood pressure in the past and unable to tolerate meds for BPH because of this. Has seen Dr. Castillo in the past with discussion on loop recorder regarding episodes of syncope in the past. VS reviewed - normal bp gen - alert, responsive, in NAD Lungs - ctab heart - normal s1/s2 without audible murmurs Abd soft, +BS, nt/nd Ext - no edema, feet cool DP and PT pulses by doppler Impression: 1. Syncope secondary to hypotension s/p EGD yesterday for esophageal dilation, suspecte related to both anesthesia for the procedure and poor PO intake 2. Anemia - uncertain chronicity and etiology 3. 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 Other chronic conditions - BPH Plan: - Blood stopped, we apologized for this occurring. There is no indication for blood, no signs of active bleeding - check vitamin b12, folate in AM both for the anemia and report of neuropathy - monitor on tele overnight, follow bp's - encourage PO intake - f/u with Dr. Grewal as an outpatient for anemia, neuropathy - recheck blood count in AM - Pt asking about need for testing now that he has received part of the blood transfusion - no testing indicated. - Safety evaluation report to be entered by KALYANI Marx regarding this event, and discussed with RN and charge nurse.
[2020-09-11 04:40] LABS: #Monocytes 0.5 thou/uL (0.11-0.59); #Neutrophils 4.1 thou/uL (1.40-6.50); %Basophils 0.6 % (0.0-1.0); %Eosinophils 0.7 % (0.0-10.0); %Lymphocytes 30.4 % (21.0-51.0); %Monocytes 7.5 % (0.0-10.0); %Neutrophils 60.8 % (42.0-75.0); Hemoglobin 8.1 g/dL (14.0-18.0); Mean Corpuscular HGB CONC 33.9 g/dL (32.0-36.0); Mean Corpuscular Hemoglobin 32.5 pg (27.0-31.0); Mean Corpuscular Volume 95.9 fL (78.0-98.0); Mean Platelet Volume 8.3 fL (7.4-10.4); Platelet Count 136 thou/uL (130-400); RBC Distribution Width 12.8 % (11.5-14.5); White Blood Cell (WBC) Count 6.7 thou/uL (4.8-10.8)
[2020-09-11 05:01] LABS: Anion Gap 8 mmol/L (10-20); BUN (Urea Nitrogen) 37 mg/dL (8.4-25.7); Calc. Creatinine Clearance 102 mL/min (70-130); Calcium 7.9 mg/dL (7.8-10.44); Carbon Dioxide 25 mmol/L (23-31); Chloride 113 mmol/L (98-107); Estimated GFR-MDRD Greater than 90; Glucose 88 mg/dL (83-110); Sodium 142 mmol/L (136-145)
--- NOTE | 2020-09-11 08:17 | PDOC.HOSPP ---
- Subjective Encounter Date: 09/11/20 (f/u hypotension) Encounter Time: 08:15 Subjective: Pt admitted yesterday for hypotension s/p Esophageal dilation the day prior. He denies any lightheaded/dizzy sensation, denies any abd pain/cp/sob. He reports feeling better today. Overnight pt noted to have a tachyarrhythmia - has been seen by Cards as an outpatient with idea of loop recorder introduced but not performed for syncopal/pre-syncopal events. Yesterday there was a plan for crossmatching and holding blood, however transfusion was started. This was identified and d/c as the hb was 8.9. The patient received less than half of the blood. - Objective Vital Signs & Weight: Vital Signs (12 hours) Temp Pulse Resp BP Pulse Ox 09/11/20 04:30 98.5 F 70 17 108/53 L 98 09/11/20 00:05 97.8 F 69 18 115/56 L 98 Weight Weight 179 lb 14.4 oz I&O: 09/10/20 09/11/20 09/12/20 06:59 06:59 06:59 Intake Total 550 Output Total 1250 Balance -700 Result Diagrams: 09/11/20 04:03 09/11/20 04:03 EKG Reviewed by me: Yes (tele - sinus 60's, 9 sec of MAT to 130's around midn ight) Hospitalist ROS - Medication Medications: Active Medications Generic Name Dose Route Start Last Admin Trade Name Freq PRN Reason Stop Dose Admin Sodium Chloride 10 ml 09/10/20 12:38 09/10/20 21:38 Flush - Normal Saline 10 Ml Syringe IVF 10 ml PRN PRN Administration Saline Flush - Exam General Appearance: NAD Heart: RRR, no murmur, no gallops Respiratory: CTAB, no wheezes, no rales Gastrointestinal: soft, non-tender, non-distended, normal bowel sounds Extremities: no cyanosis, no clubbing, no edema Psychiatric: normal affect Hosp A/P (1) Anemia Code(s): D64.9 - ANEMIA, UNSPECIFIED Status: Acute (2) Tachyarrhythmia Code(s): R00.0 - TACHYCARDIA, UNSPECIFIED Status: Acute (3) Syncope Code(s): R55 - SYNCOPE AND COLLAPSE Status: Acute - Plan Anemia s/p esophageal dilation 2 days ago - Elevated BUN to creatinine ratio and worsening anemia from yesterday afternoon to today is concerning for bleeding. --consult GI - I spoke with Dr. Sanon --start IV protonix --NPO --start IVF for maintenance - Vitamin b12 on the lower side of normal - start replacement - recheck h/h at 13:00 today Tachyarrhythmia overnight with concern reported in past of this possibility - echo and Cardiology consult - continue tele monitoring dvt prophy - scd's gi prophy - starting IV protonix code status full Reviewed plan of care with patient and nurse who demonstrate understanding and agree. No questions or further needs at end of eval. Pt will be in the hospital at least one more midnight due to the declining hemoglobin and need for GI evaluation - changing to inpatient status. Addendum - 9:49 - pt reports dark black stool just now - new for him. Info shared with Dr. Sanon. Sat down and spoke with his about current situation, treatment, consultation with both GI and cardiology - indication for both. We discussed anticipated endoscopy - EGD and possibly colonoscopy. We also revisited the blood yesterday - that the transfusion was not intended, the only intention was to have blood available. There were no questions or further needs, both demonstrate understanding and agree with plan of care.
[2020-09-11] MEDS ORDERED: FLU VACC QS2020-21(65YR UP)/PF 240 MCG/0.7 ML SYRINGE IM ONE (09:00)
[2020-09-11] MEDS: Pantoprazole 40 MG VIAL IVP SCH ×2 (09:18→21:12)
[2020-09-11] MEDS: Cyanocobalamin (Vitamin B-12) 1,000 MCG TAB PO SCH (09:18)
[2020-09-11] MEDS: Sodium Chloride 0.9% 1,000 ML IV SCH ×2 (09:19→16:11)
[2020-09-11 12:35] LABS: SARS-CoV-2 MS2 Positive; SARS-CoV-2 N Gene Negative; SARS-CoV-2 S Gene Negative; SARS-CoV-2 by NAA Not Detected (NotDetected); SARS-CoV-2 orf1ab Negative
[2020-09-11] MEDS ORDERED: PROPOFOL 200 MG/20 ML VIAL ONE (12:59)
[2020-09-11] MEDS ORDERED: Sodium Chloride 0.9% 1,000 ML IV SCH (16:23)
--- NOTE | 2020-09-11 19:13 | OP ---
DATE OF PROCEDURE: 09/11/2020 OPERATIVE PROCEDURE: Esophagogastroduodenoscopy. PREOPERATIVE DIAGNOSIS: A 80-year-old male who had esophageal dilation done 2 days ago, presents with generalized weakness, had an episode of syncope and had an episode of melena this morning. Undergoing EGD. POSTOPERATIVE DIAGNOSES: 1. Ulcer of the GE junction with mucosal tear, most likely from the esophageal dilation. 2. At time of endoscopy, no active bleeding seen. The stomach is completely empty of blood. DESCRIPTION OF PROCEDURE: The patient was placed in his left lateral position and was given sedation by Anesthesia Department. A Pentax video gastroscope under direct vision passed down the oropharynx past the GE junction into the stomach. At the GE junction, the patient was found to have ulceration measuring approximately about 1.5 cm, also on the mucosal tear. No visible vessel or any active bleeding seen, however, the mucosa was friable. Retroflexion failed to show any pathology in fundus or cardia. In the gastric body, gastric antrum, no lesion seen. The duodenal bulb, descending duodenum, no pathology. The stomach decompressed and the scope removed. RECOMMENDATIONS: 1. Discontinue n.p.o. 2. Diet as tolerated. 3. Follow up H and H. 4. IV PPI. Job ID: [id number]
[2020-09-12 04:41] LABS: #Eosinphils 0.1 thou/uL (0.0-0.7); #Lymphocytes 1.5 thou/uL (1.20-3.40); #Monocytes 0.4 thou/uL (0.11-0.59); #Neutrophils 3.2 thou/uL (1.40-6.50); %Basophils 0.3 % (0.0-1.0); %Eosinophils 1.1 % (0.0-10.0); %Lymphocytes 28.8 % (21.0-51.0); %Monocytes 7.9 % (0.0-10.0); %Neutrophils 61.9 % (42.0-75.0); Hemoglobin 7.3 g/dL (14.0-18.0); Mean Corpuscular HGB CONC 34.1 g/dL (32.0-36.0); Mean Corpuscular Hemoglobin 32.9 pg (27.0-31.0); Mean Corpuscular Volume 96.3 fL (78.0-98.0); Mean Platelet Volume 8.6 fL (7.4-10.4); Platelet Count 120 thou/uL (130-400); RBC Distribution Width 12.6 % (11.5-14.5); Red Blood Cell (RBC) Count 2.21 mill/uL (4.70-6.10); White Blood Cell (WBC) Count 5.2 thou/uL (4.8-10.8)
[2020-09-12 05:08] LABS: Anion Gap 9 mmol/L (10-20); BUN (Urea Nitrogen) 19 mg/dL (8.4-25.7); Calc. Creatinine Clearance 103 mL/min (70-130); Carbon Dioxide 25 mmol/L (23-31); Chloride 111 mmol/L (98-107); Estimated GFR-MDRD Greater than 90; Glucose 95 mg/dL (83-110); Potassium 3.7 mmol/L (3.5-5.1); Sodium 141 mmol/L (136-145)
--- NOTE | 2020-09-12 06:38 | CON ---
DATE OF CONSULTATION: 09/11/2020 REASON FOR CONSULTATION: Anemia, hypotension, and history of passing black tarry stool this morning. HISTORY OF PRESENT ILLNESS: Gio Iraheta is a very pleasant 80-year-old male who is a patient of Dr. Rubén Grewal. However, he has seen Dr. Mccray for evaluation of dysphagia. Underwent EGD and dilation on Saturday. After he went home that evening, he started feeling dizzy, felt very weak, did not really feel very good. The patient had no hematochezia or rectal bleeding or tarry stool on Saturday. He has been feeling weak and dizzy off and on. Because of the above reason, he came to the ER and in the ER, had two syncopal episode. The patient again had no overt bleeding. Stool done for Hemoccult blood test came back negative. The patient also hypotension. Denies weakness, dizziness, or syncope. On admission in the ER, he was very hypotensive with systolic blood pressure 65/45. Today, his vital signs are much better. Temperature 98.5 degrees Fahrenheit, pulse is 70, blood pressure 93/51. Here, he had one black tarry stool this morning. He had no abdominal pain. No nausea, no vomiting. I reviewed the admitting labs. He was anemic on admission. Hemoglobin was 9.9, hematocrit 30.7 on 09/10/2020, and yesterday, dropping down slowly from 9.9 to 8.4 to 8.9. This morning, 8.1. The hematocrit is 24%. The Chem-7 shows elevation of BUN to 53 yesterday and today is dropping down to 37 after rehydration. It appears the elevation in BUN is mostly from bleeding from the GI tract, reabsorption of blood and making the BUN go up. Today, he feels better. He has no abdominal pain, no dizziness. No nausea, vomiting. He has no prior history of peptic ulcer. He is not on any anticoagulation. Going over the [employer],_ he has normal CBC in June of 2019 and also normal kidney function. Elevation in BUN appears to be acute, mostly from GI bleeding and to some extent possibly from dehydration. MEDICAL ILLNESSES: 1. Glaucoma. 2. Arthritis. 3. BPH. 4. Syncopal episodes in the past and has seen Dr. Poli Castillo, and had a negative cardiology workup 3 years ago. 5. Esophageal dilation for dysphagia 2 days ago. SURGERIES: 1. Appendectomy. 2. Cervical facet surgery in June of 2019. He has no history of any heart disease. No lung disease. No diabetes. He had no major surgical procedure. FAMILY HISTORY: Mother lived up to the age of 97. Father of MVA_many years ago. There is no family history of cancer, diabetes, heart disease, or lung disease. ALLERGIES: NONE. SOCIAL HISTORY: He does not smoke or drink alcohol. MEDICATIONS: Reviewed. REVIEW OF SYSTEMS: A 10-point system review: CONSTITUTIONAL: No weight loss. No fever or chills. HEAD: No chronic headache. History of syncope yesterday x2 in the ER. EENT: No diplopia. No impaired vision. No hearing loss. No nose bleed. No sore throat. History of dysphagia. NECK: No stiffness or limitation of movement. HEART: No chest pain. No dyspnea. No orthopnea or PND. LUNGS: No chronic coughing. No hemoptysis. No dyspnea. GI: Dysphagia, dilation 2 days ago. black tarry stool this morning. GENITOURINARY: No dysuria, hematuria. MUSCULOSKELETAL: Nonrelevant. NEUROENDOCRINE: Nonrelevant. PSYCHIATRIC: Nonrelevant. PHYSICAL EXAMINATION: GENERAL: A very pleasant male, appears very comfortable. He is awake, alert, oriented to time, place, and person. VITAL SIGNS: This morning, temperature 99.2 degrees Fahrenheit, pulse is 80, blood pressure 93/51. HEENT: Conjunctivae are clear. NECK: Supple. CARDIOVASCULAR SYSTEM: Normal heart sounds. LUNGS: Clear to auscultation. ABDOMEN: Soft. No organomegaly. No tenderness. No masses. EXTREMITIES: Reveal no edema. LABORATORY DATA: Shows anemia, WBC 11,500; hemoglobin 9.9, hematocrit 30.7, decreasing slowly to 8.1 today, hematocrit 24; platelet count is normal at 136,000, polymorphs 60, lymphocytes 30, monocytes 7. Chemistry panel shows normal lytes. BUN was 53, dropping to 37 today after IV hydration; creatinine is 0.71. Vitamin B12 of 291, folate 11.90. Troponin 0.026. Calcium 7.9. CLINICAL IMPRESSION: 1. A 80-year-old WITH H/O dysphagia, has undergone EGD and dilation by Dr. Mccray on 09/09/2020. There was some dizziness, fatigue, weakness on Saturday afternoon. The symptoms continued and he came to the ER and had 2 syncopal episodes. Subsequently he had no hematochezia, melena or any black tarry stool until this morning. The stool for occult blood was negative yesterday. His BUN was 53 on admission, dropping to 37 today. Based on the history and physical, lab findings, I believe he has upper GI bleeding , which could account dizziness and syncope and also elevation of BUN. 2. Glaucoma. 3. Prostate hypertrophy. 4. Dysphagia, status post dilation 2 days ago. RECOMMENDATIONS: 1. Empiric PPI. 2. IV fluids. 3. Follow up labs. 4. Plan for EGD later today because of black tarry stool. Job ID: [id number] MTDD
--- NOTE | 2020-09-12 07:55 | PDOC.HOSPP ---
- Subjective Encounter Date: 09/12/20 (f/u GI bleed) Encounter Time: 07:53 Subjective: Pt admitted 2 days ago for hypotension post-esophageal dilation. Yesterday had a decline in hemoglobin, started on IV protonix, and EGD revealed a non-bleeding esophageal ulcer. Since prior to the procedure pt has passed dark black stool. He reports a small amount overnight. He denies any abd discomfort/n/v or other concerns. He also denies any lightheaded/dizziness - Objective Vital Signs & Weight: Vital Signs (12 hours) Temp Pulse BP Pulse Ox 09/12/20 04:45 98.2 F 73 125/59 L 98 09/11/20 20:00 98.7 F 79 101/57 L 97 Weight Weight 177 lb 11.2 oz I&O: 09/11/20 09/12/20 09/13/20 06:59 06:59 06:59 Intake Total 550 2130 Output Total 1250 960 Balance -700 1170 Result Diagrams: 09/12/20 04:07 09/12/20 04:07 EKG Reviewed by me: Yes (tele - sinus 60-70's) Hospitalist ROS - Medication Medications: Active Medications Generic Name Dose Route Start Last Admin Trade Name Freq PRN Reason Stop Dose Admin Cyanocobalamin 1,000 mcg 09/11/20 09:00 09/11/20 09:18 Cyanocobalamin (Vitamin B-12) 1,000 Mcg Tab PO 1,000 mcg DAILY CARLOS Administration Pantoprazole Sodium 40 mg 09/11/20 09:00 09/11/20 21:12 Pantoprazole 40 Mg Vial IVP 40 mg Q12HR CARLOS Administration Sodium Chloride 10 ml 09/10/20 12:38 09/10/20 21:38 Flush - Normal Saline 10 Ml Syringe IVF 10 ml PRN PRN Administration Saline Flush Sodium Chloride 10 ml 09/11/20 09:00 09/11/20 21:07 Flush - Normal Saline 10 Ml Syringe IVF 10 ml Q12HR CARLOS Administration - Exam General Appearance: NAD Heart: RRR, no murmur Respiratory: CTAB, no wheezes, no rales, no ronchi Gastrointestinal: soft, non-tender, non-distended, normal bowel sounds Extremities: no cyanosis, no clubbing, no edema Psychiatric: normal affect Hosp A/P (1) Anemia Code(s): D64.9 - ANEMIA, UNSPECIFIED Status: Acute Qualifiers: Other causes of anemia: acute posthemorrhagic (2) Tachyarrhythmia Code(s): R00.0 - TACHYCARDIA, UNSPECIFIED Status: Resolved (3) Syncope Code(s): R55 - SYNCOPE AND COLLAPSE Status: Acute - Plan GI bleed secondary to esophageal ulcer (non-bleeding) based on EGD yesterday. - Further decline of hemoglobin today to 7.3 - will transfuse 1 unit of PRBC as this is a change from yesterday. Reviewed with patient risks/benefits of transfusion and will obtain a new consent form. - Will contact GI regarding blood and events over the weekend - pt followed by Dr. Mccray - continue IV protonix - d/c IVF - continue vit b12 Tachyarrhythmia - resolved with normal echo - awaiting Cardiology consult - transfer clerk to check on this dvt prophy - scd's gi prophy - starting IV protonix code status full Reviewed plan of care with patient and nurse who demonstrate understanding and agree. No questions or further needs at end of eval.
[2020-09-12] MEDS: Cyanocobalamin (Vitamin B-12) 1,000 MCG TAB PO SCH (12:39)
[2020-09-12] MEDS: Pantoprazole 40 MG VIAL IVP SCH ×2 (17:43→21:30)
[2020-09-12 17:47] LABS: Hemoglobin 8.7 g/dL (14.0-18.0)
--- NOTE | 2020-09-12 17:50 | PRG ---
DATE OF SERVICE: 09/12/2020 SUBJECTIVE: Mr. Iraheta had one black stool this morning and one black stool late this afternoon. He has no abdominal pain. He has been tolerating a solid diet well. OBJECTIVE: VITAL SIGNS: Temperature is 98.2, pulse 69, and blood pressure 114/56. GENERAL: He is in no acute distress. Alert and oriented x3. HEENT: Eyes have no scleral icterus. Oropharynx is clear without lesions. LYMPHATIC: No cervical or supraclavicular lymphadenopathy. LUNGS: Clear to auscultation bilaterally. HEART: Regular rate and rhythm without murmur. ABDOMEN: Soft, nontender, and nondistended. Bowel sounds are present. EXTREMITIES: No lower extremity edema. LABORATORY DATA: White blood cell count 5.2, hemoglobin was 7.3 this morning, and platelets 120. INR 1.2. Creatinine 0.68. IMPRESSION: 1. Esophageal stricture, status post dilation, now with acute gastrointestinal bleed from the dilation site. He underwent endoscopy by Dr. Sanon yesterday, and the dilation site no longer had any overt bleeding. He has passed a couple of black stools today which sounds more like he is passing out old blood, and he does not appear to have active bleeding at this point. He has no pain or nausea. 2. Anemia of acute blood loss. He did receive 1 unit transfusion today. RECOMMENDATIONS: 1. Proton pump inhibitor. 2. Recheck his hemoglobin in the morning. If this remains stable and he is tolerating his diet well, then he can likely discharge home tomorrow. If he has a significant drop in his hemoglobin and further overt bleeding, then followup endoscopy can be performed; however, I would not anticipate that this will be necessary. Job ID: [id number]
--- NOTE | 2020-09-12 18:23 | CON ---
DATE OF CONSULTATION: 09/12/2020 INDICATION FOR CONSULTATION: A 80-year-old patient with history of syncope. HISTORY OF PRESENT ILLNESS: This is a very pleasant 80-year-old gentleman who I have seen in the past, had some evaluation for syncopal episodes in the past. There have been no significant etiology of the syncopal episodes. He has had episodes occurring while he was sitting, but no significant arrhythmias or bradycardias or pauses have been noted. He actually had been having some problem swallowing and had an esophageal dilatation performed on Saturday and then went home that evening and said he became very lightheaded, dizzy, lost his vision for a few seconds, presented to the emergency room where he was found to have significant hypotension. Blood pressure was 65/45. He got up to go to the bathroom apparently and had syncopal episodes, most likely due to hypotension. He received 3 L of fluid in the emergency room and then became normotensive. Also noted was a significant drop in his hemoglobin since he has been admitted, which may be due to the 3 L of fluid that he obtained in the emergency room. His hemoglobin today was 7.3. On Saturday, hemoglobin was 8.4. He said his stools have been very dark. During the endoscopy, according to the patient, they did find an ulcer, but there was no bleeding noted, and he did have esophageal dilatation. At this time, he is feeling much better. The blood pressure is 107/53. He has had no significant arrhythmias or pauses since being in the hospital. PAST MEDICAL HISTORY: Significant for the syncopal episodes in the past. He has had about 4 to 5 syncopal episodes over the last 5 to 6 years and each of these were not associated with any particular activity. At one time, he was sitting in a table eating and he passed out, 2 other times for sure was sitting in his chair at home and then passed out, and yesterday he passed out when he wanted to go up to the bathroom in the emergency room, but at that time was very hypotensive. He has also had skin cancers removed. He has had an appendectomy performed. FAMILY HISTORY: His maternal aunt had stomach cancer. His mother had hypertension. He had 1 uncle with heart disease. SOCIAL HISTORY: He does not smoke. He does not drink any significant alcohol. ALLERGIES: HE HAS HAD NO KNOWN DRUG ALLERGIES. MEDICATIONS: Only he was taking the baby aspirin a day. Otherwise, no significant medications. SOCIAL HISTORY: He is . He continues to work couple days a week. 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 ALLERGIES: NONE. REVIEW OF SYSTEMS: A 12-point review of systems unremarkable except what is noted in history of present illness. He does complain of dark stools, however. PHYSICAL EXAMINATION: GENERAL: Reveals a well-developed, well-nourished gentleman, who is in no acute distress. He is very oriented. VITAL SIGNS: His blood pressure at this time was 107/53, heart rate is in the 80s and shows a sinus rhythm, respiratory rate 16, he is afebrile. HEENT: Shows the head to be normocephalic and atraumatic. Carotid pulses are present. There were no bruits. CHEST: Clear to auscultation without rales, rhonchi, or wheezing. CARDIOVASCULAR: Reveals a regular rate and rhythm. Normal S1 and S2. There is no significant S3 or S4 noted. There were no significant murmurs, heaves, thrills, bruits, or rubs. ABDOMEN: Soft and nontender. Positive bowel sounds are present. EXTREMITIES: Show no clubbing, cyanosis, or edema. Pedal pulses are present. NEUROLOGICAL: He appears to be fully intact. SKIN: Warm and dry. RADIOLOGY DATA: He had an echocardiogram performed in April of 2019 in the office, which showed ejection fraction of 55% to 60% with trace mitral and tricuspid valve regurgitation. He did have 1/3 or mild diastolic dysfunction. LABORATORY DATA: Shows a WBC of 5.2, hemoglobin 7.3, platelet count 120,000. His sodium is 141, potassium 3.7. His BUN was 19 with a creatinine of 0.68. Blood sugar was 95. There were no other significant abnormalities. Troponin I was negative. His EKG on arrival in the emergency room showed a normal sinus rhythm with no acute changes. No indication of ischemia and no indication of any significant abnormalities. He had a normal EKG. No evidence of first-degree, second-degree, third-degree, or any other abnormalities noted on the EKG. IMPRESSION: 1. Elderly gentleman who had a recent apparent gastrointestinal bleed. Also, this was thought to bled and has stop bleeding, who developed hypotension in the emergency room and has syncopal episode. I did discuss with him the possibility of implanting an implantable loop recorder should he continue to have these episodes since they are very far apart. We have not been able to determine the etiology of his syncopal episodes in the past. This may be advisable once he is stable as far as his hemoglobin is concerned and unless he exhibits any arrhythmias while being in the hospital. I did discuss with him that possibly he would eventually need to undergo pacemaker insertion if we find anything that would indicate this was due to some type of arrhythmia or pauses. 2. History of mild diastolic dysfunction. This is not the etiology of his syncope, however. At this time, we will continue to monitor the patient very carefully, but overall cardiac status appears to be stable. The syncopal episode most likely was due to the drop in the hemoglobin and the hypotension, which recovered apparently very quickly after he was given IV fluids in the emergency room. Job ID: [id number]
[2020-09-13 04:51] LABS: #Basophils 0.1 thou/uL (0.0-0.2); #Eosinphils 0.1 thou/uL (0.0-0.7); #Lymphocytes 1.8 thou/uL (1.20-3.40); #Monocytes 0.5 thou/uL (0.11-0.59); #Neutrophils 2.8 thou/uL (1.40-6.50); %Eosinophils 1.9 % (0.0-10.0); %Lymphocytes 34.2 % (21.0-51.0); %Monocytes 9.2 % (0.0-10.0); %Neutrophils 53.6 % (42.0-75.0); Hemoglobin 8.5 g/dL (14.0-18.0); Mean Corpuscular HGB CONC 33.6 g/dL (32.0-36.0); Mean Corpuscular Hemoglobin 31.3 pg (27.0-31.0); Mean Corpuscular Volume 93.2 fL (78.0-98.0); Mean Platelet Volume 8.5 fL (7.4-10.4); Platelet Count 126 thou/uL (130-400); RBC Distribution Width 13.8 % (11.5-14.5); White Blood Cell (WBC) Count 5.2 thou/uL (4.8-10.8)
[2020-09-13 05:12] LABS: Anion Gap 7 mmol/L (10-20); BUN (Urea Nitrogen) 13 mg/dL (8.4-25.7); Calc. Creatinine Clearance 99 mL/min (70-130); Carbon Dioxide 28 mmol/L (23-31); Chloride 109 mmol/L (98-107); Estimated GFR-MDRD Greater than 90; Glucose 101 mg/dL (83-110); Potassium 3.4 mmol/L (3.5-5.1); Sodium 141 mmol/L (136-145)
[2020-09-13] MEDS: Pantoprazole 40 MG VIAL IVP SCH (08:17)
[2020-09-13] MEDS: Cyanocobalamin (Vitamin B-12) 1,000 MCG TAB PO SCH (08:17)
[2020-09-13 15:17] VITALS: BP 112/56; TEMP 98.5
--- NOTE | 2020-09-13 18:22 | DIS ---
DATE OF ADMISSION: 09/11/2020 DATE OF DISCHARGE: 09/13/2020 DISCHARGE DISPOSITION: Home. FOLLOWUP: 1. Follow up with primary care physician, Dr. Rubén Grewal, in 1 week. 2. Follow up with Cardiology, Dr. Castillo, and Gastroenterology, Dr. Mccray, in 2 weeks. ALLERGIES: NO KNOWN DRUG ALLERGIES. FALL PRECAUTION WAS EMPHASIZED. DISCHARGE MEDICATIONS: 1. Protonix 40 mg b.i.d. 2. Resume aspirin once cleared by Gastroenterology. Patient was seen and examined on the day of discharge. Denies any new complaints. No chest pain, shortness of breath, palpitations, fever, or chills reported. Patient denies any new episodes of GI bleeding. BRIEF HOSPITAL COURSE: Patient is a 80-year-old male, who presented to the emergency room on 10 September 2020 with a near syncopal episode. He felt generally weak and fatigued. He underwent esophageal dilatation one day before the admission. He checked his blood pressure at home, which was extremely low. Patient had two syncopal episodes when he was in the bathroom in the emergency room. He received IV fluid, after which his blood pressure improved. Next morning, patient had dark black stool. On-call Gastroenterology team was consulted. Patient underwent EGD on 09/11, that was consistent with ulcer at the GE junction with mucosal tear, most likely from esophageal dilatation. There was no active bleeding reported. He received a total of 1 unit PRBC this admission. His blood pressure has stabilized. He developed short run of supraventricular tachycardia, for which he was evaluated by Cardiology. Cardiology recommended outpatient followup for possible loop recorder. He has been cleared by Gastroenterology and Cardiology for discharge. Due to vitamin B12 in low normal range, he was started on vitamin B12 supplementation. He was advised to continue PPIs and to avoid NSAIDs. FINAL DIAGNOSES: 1. Syncope secondary to gastrointestinal bleeding. 2. Acute gastrointestinal blood loss anemia. 3. Hypokalemia, replaced. 4. Vitamin B12 deficiency. 5. History of esophageal stricture, status post recent dilatation. 6. Tachyarrhythmia. Patient was evaluated by Cardiology. Patient understands the above plan of care. Job ID: [id number]
--- NOTE | 2020-09-15 05:25 | PQF ---
CLINICAL DOCUMENTATION CLARIFICATION FORM: Dear : Salvador Nicolas Date / Time: 09/15/2020 0524 Please exercise your independent, professional judgment in responding to the clarification form. Clinical indicators are provided on the bottom of this form for your review Please check appropriate box(s): [x ] Hypovolemic Shock [ ] Hemorrhagic Shock [ ] Shock Unspecified [ ] Other diagnosis [ ] Unable to determine In addition, please specify: Present on Admission (POA): [x ] Yes [ ] No [ ] Unable to determine Physician Signature: Date/Time: For continuity of documentation, please document condition throughout progress notes and discharge summary. Thank You. To be completed by CDI/Coding staff for physician review: Present Clinical Indicators - Signs / Symptoms / Labs Results and Location in Medical Record [X] Pulse 89, resp 18, Temp 98.2 Vital signs 09/10 [X] BP 116/57, 112/57; 115/56; 108/53 Vital signs 09/10 [X] RBC 3.08, Hgb 9.9, Hct 30.7 Laboratory 09/10 [X] Blood occult stool : Positive Microbiology 09/11 [X] Had episode of prior syncopal with weakness and dizziness H&P p1 09/11 Francisco J PA-C [X] Hypotension associated with dizziness, weakness, tunnel vision H&P p5 09/11 Francisco J PA-C [X] Ulcer of GE junction with mucosal tear, most likely from the esophageal dilation Procedure DR Sanon 09/11 [X] Gi bleed 2/2 esophageal ulcer HPN p3 09/12 Dr Swan Present Risk Factors Results and Location in Medical Record [X] 80 year-old Male H&P p1 09/11 Francisco J PA-C [X] BPH H&P p1 09/11 Francisco J PA-C [X] s/p Esophageal Dilation H&P p1 09/11 Francisco J PA-C [X] Acute blood loss anemia DS 09/13 Present Treatments Results and Location in Medical Record [X] IVF NS 1L FEB 01 [X] IV Protonix 40 mg MAR 09/11 [X] Blood occult stool Microbiology 09/11 [X] Transfused PRBC Blood band 09/10 [X] EGD Procedure DR Sanon 09/11 CDS/Retoucher Signature: Sharyn Maldonado Phone #: ext [phone] Date/Time: 09/15/2020 0524 This is a permanent part of the Medical Record [facility]
--- NOTE | 2020-09-15 05:29 | PQF ---
CLINICAL DOCUMENTATION CLARIFICATION FORM: Dear : Salvador Nicolas Date / Time: 09/15/2020527 Please exercise your independent, professional judgment in responding to the clarification form. Clinical indicators are provided on the bottom of this form for your review Please check appropriate box(es): [ ] Esophageal ulcer with bleeding is a postoperative complication of Esophageal Dilation [ ] Esophageal ulcer with bleeding is not a postoperative complication of Esophageal Dilation [ ] Other diagnosis [ x ] Unable to determine Physician Signature: Date/Time: For continuity of documentation, please document condition throughout progress notes and discharge summary. Thank You. To be completed by CDI/Coding staff for physician review: Present Clinical Indicators - Signs / Symptoms / Labs Results and Location in Medical Record [X] BP 116/57,Pulse 89, resp 18, Temp 98.2 Vital signs 09/10 [X] Blood occult stool : Positive Microbiology 09/11 [X] Underwent esophageal dilation yesterday H&P p1 09/11 Francisco J PA-C [X] Ulcer of GE junction with mucosal tear, most likely from the esophageal dilation Procedure DR Sanon 09/11 [X] Gi bleed 2/2 esophageal ulcer HPN p3 09/12 Dr Swan Present Risk Factors Results and Location in Medical Record [X] 80 year-old Male H&P p1 09/11 Francisco J PA-C [X] BPH H&P p1 09/11 Francisco J PA-C [X] s/p Esophageal Dilation H&P p1 09/11 Francisco J AUGUSTE-C [X] Treatments Results and Location in Medical Record [X] IVF NS 1L FEB 01 [X] IV Protonix 40 mg FEB 01 [X] Blood occult stool Microbiology 09/11 [X] Transfused PRBC Blood band 09/10 [X] EGD Procedure DR Sanon 09/11 CDS/Greenkeeper Signature: Sharyn Charleskarina Phone #: [phone] Date/Time: 09/15/2020527 This is a permanent part of the Medical Record [facility]
== END 2020-09-13 16:40 | disposition home or self-care (01) | DRG 380 ==
LOC: ERS 08:37 → 2NO 14:51 → OBSVTOIN 09-11 08:13
PROVIDERS: ADMIT Family Medicine; ATTEND Family Medicine
PROC: 30233N1 Transfusion of Nonautologous Red Blood Cells into Peripheral Vein, Percutaneous Approach (ICD-10-PCS; 2020-09-10)
PROC: 0DJ08ZZ Inspection of Upper Intestinal Tract, Via Natural or Artificial Opening Endoscopic (ICD-10-PCS; principal; 2020-09-11)
DX: K22.11 Ulcer of esophagus with bleeding (principal); R57.1 Hypovolemic shock; D62 Acute posthemorrhagic anemia; I47.1 Supraventricular tachycardia; E87.6 Hypokalemia; Z20.828 Contact with and (suspected) exposure to other viral communicable diseases; E53.8 Deficiency of other specified B group vitamins; G62.9 Polyneuropathy, unspecified; N40.0 Benign prostatic hyperplasia without lower urinary tract symptoms; E86.0 Dehydration; M19.90 Unspecified osteoarthritis, unspecified site; H40.9 Unspecified glaucoma; Z79.899 Other long term (current) drug therapy; Z79.82 Long term (current) use of aspirin
CPT/HCPCS: 36415; 36430; 71045; 74018; 80048; 80053; 82274; 82607; 82728; 82746; 83540; 83550; 83605; 83735; 84443; 84484; 85025; 85610; 85730; 86850; 86900; 86901; 87635; 93005; 93306; C9113; G0378; J2704; P9016; U0003

== ENCOUNTER 2020-09-15 09:45 | Emergency (ER) | payer MEDICARE ==
[2020-09-15 10:44] LABS: #Basophils 0.1 thou/uL (0.0-0.2); #Eosinphils 0.1 thou/uL (0.0-0.7); #Lymphocytes 1.8 thou/uL (1.20-3.40); #Monocytes 0.4 thou/uL (0.11-0.59); #Neutrophils 4.4 thou/uL (1.40-6.50); %Basophils 0.9 % (0.0-1.0); %Eosinophils 1.1 % (0.0-10.0); %Lymphocytes 26.9 % (21.0-51.0); %Monocytes 5.7 % (0.0-10.0); %Neutrophils 65.5 % (42.0-75.0); Mean Corpuscular HGB CONC 33.3 g/dL (32.0-36.0); Mean Corpuscular Hemoglobin 31.8 pg (27.0-31.0); Mean Corpuscular Volume 95.5 fL (78.0-98.0); Mean Platelet Volume 8.2 fL (7.4-10.4); Platelet Count 186 thou/uL (130-400); RBC Distribution Width 14.2 % (11.5-14.5); Red Blood Cell (RBC) Count 3.15 mill/uL (4.70-6.10); White Blood Cell (WBC) Count 6.7 thou/uL (4.8-10.8)
[2020-09-15 11:08] LABS: Anion Gap 12 mmol/L (10-20); BUN (Urea Nitrogen) 14 mg/dL (8.4-25.7); Calc. Creatinine Clearance 0 mL/min (70-130); Carbon Dioxide 28 mmol/L (23-31); Chloride 106 mmol/L (98-107); Estimated GFR-MDRD 83; Potassium 3.8 mmol/L (3.5-5.1); Sodium 142 mmol/L (136-145)
[2020-09-15 11:09] LABS: ALT (SGPT) 17 U/L (8-55); AST (SGOT) 20 U/L (5-34); Albumin 3.7 g/dL (3.4-4.8); Alkaline Phosphatase 55 U/L (40-110); Bilirubin, Total 0.6 mg/dL (0.2-1.2); Calcium 8.6 mg/dL (7.8-10.44); Globulin 2.4 g/dL (2.4-3.5); Glucose 113 mg/dL (83-110); Protein, Total 6.1 g/dL (5.8-8.1)
== END 2020-09-15 14:05 | disposition home or self-care (01) ==
LOC: ERS 09:45
DX: R55 Syncope and collapse (principal); E86.0 Dehydration; R60.0 Localized edema; Z79.899 Other long term (current) drug therapy
CPT/HCPCS: 80053; 84484; 85025; 86850; 86900; 86901; 93005

== ENCOUNTER 2020-12-15 09:21 | Outpatient (CLI) | payer MEDICARE ==
--- NOTE | 2020-12-15 10:19 | ULT ---
Exam:Leftlower extremity venous ultrasound with Doppler HISTORY: Leftlower extremity swelling COMPARISON: None TECHNIQUE: Grayscale, color flow, Doppler imaging and spectral wave muscle performed left lower extre mity venous system FINDINGS: There is compressibility, presence of flow and augmentation in the common femoral vein, femoral vein and popliteal vein. There is flow in the posterior tibial vein. There is flow in the greater saphenous vein and profunda femoral vein IMPRESSION: No thrombus in the left lower extremity deep venous system.
== END 2020-12-15 09:22 | disposition home or self-care (01) ==
LOC: BICULT 09:21
PROVIDERS: ATTEND Family Medicine
DX: R60.0 Localized edema (principal)

== ENCOUNTER 2022-03-30 14:25 | Outpatient (CLI) | payer MEDICARE | END 2022-03-30 14:26 | disposition home or self-care (01) | LOC: BICRAD 14:25 | PROVIDERS: ATTEND Family Medicine | DX: R05.9 Cough, unspecified (principal) | CPT/HCPCS: 71046 ==

== ENCOUNTER 2024-09-21 08:15 | Outpatient (CLI) | payer MEDICARE | END 2024-09-21 08:16 | disposition home or self-care (01) | LOC: BICULT 08:15 | PROVIDERS: ATTEND Family Medicine | DX: R19.5 Other fecal abnormalities (principal); I70.0 Atherosclerosis of aorta | CPT/HCPCS: 76700 ==

== ENCOUNTER 2024-10-09 07:26 | Outpatient (CLI) | payer MEDICARE ==
[2024-10-09] MEDS ORDERED: Iopamidol 370 76% 100 ML VIAL ONE (12:24)
== END 2024-10-09 07:27 | disposition home or self-care (01) ==
LOC: BICCT 07:26
PROVIDERS: ATTEND Family Medicine
DX: R10.84 Generalized abdominal pain (principal); M47.816 Spondylosis without myelopathy or radiculopathy, lumbar region
CPT/HCPCS: 74170

== ENCOUNTER 2025-01-11 10:29 | Observation (INO) | payer MEDICARE, OTHER ==
[2025-01-11 10:59] LABS: #Basophils 0.03 10x3/uL (0.0-0.2); %Basophils 0.6 % (0.0-1.0); %Eosinophils 1.1 % (0.0-10.0); %Lymphocytes 32.4 % (21.0-51.0); %Monocytes 6.5 % (0.0-10.0); %Neutrophils 59.2 % (42.0-75.0); Hematocrit 32.9 % (42.0-52.0); Hemoglobin 10.6 g/dL (14.0-18.0); Mean Corpuscular HGB CONC 32.2 g/dL (32.0-36.0); Mean Corpuscular Hemoglobin 31.8 pg (27.0-31.0); Mean Corpuscular Volume 98.8 fL (78.0-98.0); Mean Platelet Volume 10.2 fL (7.4-10.4); Platelet Count 159 10x3/uL (130-400); RBC Distribution Width 14.3 % (11.5-14.5); Red Blood Cell (RBC) Count 3.33 mill/uL (4.70-6.10)
[2025-01-11 11:16] LABS: ALT (SGPT) 9 U/L (Less than 45); AST (SGOT) 22 U/L (11-34); Albumin 3.3 g/dL (3.1-4.5); Alkaline Phosphatase 61 U/L (40-110); Anion Gap 8 mmol/L (10-20); BUN (Urea Nitrogen) 16 mg/dL (8.4-25.7); Bilirubin, Total 0.6 mg/dL (0.3-1.2); Calc. Creatinine Clearance 0 mL/min (70-130); Calcium 8.5 mg/dL (7.8-10.44); Carbon Dioxide 29 mmol/L (23-31); Chloride 107 mmol/L (98-107); Estimated GFR 86; Globulin 2.9 g/dL (2.4-3.5); Glucose 118 mg/dL (83-110); Protein, Total 6.2 g/dL (5.8-8.1); Sodium 140 mmol/L (136-145)
[2025-01-11 11:35] LABS: Troponin I Less than 0.010 ng/mL (< 0.028)
[2025-01-11] MEDS ORDERED: Senokot S 8.6-50 MG TAB PO PRN (13:14)
[2025-01-11] MEDS ORDERED: Ondansetron ODT 4 MG TAB PO PRN (13:14)
[2025-01-11] MEDS ORDERED: Acetaminophen 325 MG TAB PO PRN (13:14)
[2025-01-11 13:32] LABS: Bacteria/HPF None Seen HPF (None Seen); Bilirubin Negative (Negative); Blood, Urine Negative (Negative); CAUTI Indications for Culture Dysuria,urgency,freq; Clarity Clear (Clear); Glucose, Urine (Dipstick) Normal (Negative); Ketone, Urine Negative (Negative); Leukocyte Negative Leu/uL (Negative); Nitrite Negative (Negative); Protein, Urine (Dipstick) Negative (Neg-Trace); RBC/HPF 0-3 HPF (0-3); Specific Gravity, Urine 1.012 (1.002-1.036); Squamous Epithelial None Seen HPF (0-3); Urobilinogen Normal mg/dL (Less than 2); WBC/HPF 0-3 HPF (0-3); pH, Urine 7.5 (5.0-9.0)
[2025-01-11 13:33] LABS: Urine Culture Reflex No No
[2025-01-11] MEDS: Sodium Chloride 0.9% 1,000 ML IV SCH (14:52)
[2025-01-11 15:33] LABS: Troponin I Less than 0.010 ng/mL (< 0.028)
[2025-01-11 16:45] VITALS: BMI 25.0
[2025-01-11 17:49] LABS: Troponin I Less than 0.010 ng/mL (< 0.028)
[2025-01-11] MEDS: Famotidine 20 MG TAB PO SCH (20:07)
[2025-01-12 05:10] LABS: #Basophils 0.04 10x3/uL (0.0-0.2); %Basophils 0.6 % (0.0-1.0); %Eosinophils 1.4 % (0.0-10.0); %Lymphocytes 29.2 % (21.0-51.0); %Monocytes 8.8 % (0.0-10.0); %Neutrophils 59.7 % (42.0-75.0); Hematocrit 31.7 % (42.0-52.0); Hemoglobin 10.5 g/dL (14.0-18.0); Mean Corpuscular HGB CONC 33.1 g/dL (32.0-36.0); Mean Corpuscular Hemoglobin 31.9 pg (27.0-31.0); Mean Corpuscular Volume 96.4 fL (78.0-98.0); Mean Platelet Volume 10.1 fL (7.4-10.4); Platelet Count 158 10x3/uL (130-400); RBC Distribution Width 14.1 % (11.5-14.5); Red Blood Cell (RBC) Count 3.29 mill/uL (4.70-6.10)
[2025-01-12] MEDS: Enoxaparin 40 MG (0.4 mL) SYRINGE SC SCH (09:04)
[2025-01-12 11:19] VITALS: BP 114/59; TEMP 98
== END 2025-01-12 15:27 | disposition home or self-care (01) ==
LOC: ERS 10:29 → OBS 13:07
PROVIDERS: ADMIT Hospitalist; ATTEND Internal Medicine
DX: R55 Syncope and collapse (principal); N40.0 Benign prostatic hyperplasia without lower urinary tract symptoms; H40.9 Unspecified glaucoma; Z90.49 Acquired absence of other specified parts of digestive tract; Z79.82 Long term (current) use of aspirin; Z79.899 Other long term (current) drug therapy
CPT/HCPCS: 71045; 80053; 81001; 84484 ×2; 85025 ×2; 93005; 96372; 99285; G0378 ×3; J1650; J7030 ×2; 36415

== ENCOUNTER 2025-01-18 09:08 | Outpatient (CLI) | payer OTHER ==
[2025-01-18] MEDS ORDERED: Magnevist 469MG/ML 20 ML VIAL ONE (15:22)
== END 2025-01-18 09:09 | disposition home or self-care (01) ==
LOC: BICMRI 09:08
PROVIDERS: ATTEND Family Medicine
DX: R55 Syncope and collapse (principal)
CPT/HCPCS: 70553